=== PATIENT | male | born 1940 | race Caucasian/White ===

== ENCOUNTER 2023-04-10 16:21 | Inpatient (IN) | payer MEDICARE, SELFPAY ==
[2023-04-10] VITALS (13 sets, daily range): BP systolic 84–104; BP diastolic 56–73; PULSE 82–103; RESP 15–25; TEMP 36.1–36.4; O2SAT 94–99; BMI 25.2
--- NOTE | ~2023-04-10 | XR_ITS ---
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 RESULT: Lines, tubes, and devices: None. Lungs and pleura: Patchy airspace disease in the peripheral right mid and bilateral lower lungs. Sen escent changes. Cardiomediastinal silhouette: Stable. Other: No acute osseous or upper abdominal finding. IMPRESSION: Patchy bilateral airspace disease concerning for pneumonia. Reviewed, dictated and finalized at location K. PRESS OPERATOR
--- NOTE | ~2023-04-10 | XR_ITS ---
EXAMINATION: XR chest 1V portable INDICATION: Shortness of breath TECHNIQUE: Portable AP chest at 0939 hours COMPARISON: 04/10/2023 FINDINGS: There are patchy airspace opacities of the mid and lower lung zones with interval increase. No pleural effusion or pneumothorax. The cardiomediastinal silhouette is normal. IMPRESSION: 1. Patchy airspace opacities of the mid and lower lung zones with interval increase, likely pneumonia . Reviewed, dictated and finalized at location F. GER TRADE IMPRESSION: 1. Patchy airspace opacities of the mid and lower lung zones with interval incr ease, likely pneumonia.
[2023-04-10 17:39] LABS: Basophils Absolute Auto 0.1 K/mm3 (0.0-0.1); Basophils Percent Auto 0.5 % (0.2-1.2); Eosinophils Absolute Auto 0.2 K/mm3 (0-0.3); Eosinophils Percent Auto 1.9 % (0-4.4); Hematocrit 43.5 % (42.0-52.0); Hemoglobin 14.2 g/dL (14.0-18.0); Immature Granulocyte Absolute 0.18 K/mm3 (0.00-0.031); Immature Granulocyte Percent A 1.5 % (0-0.5); Lymphocytes Absolute Auto 0.45 K/mm3 (0.9-3.2); Lymphocytes Percent Auto 3.7 % (18.3-44.2); Mean Corpuscular HGB Conc 32.6 g/dl (32-36); Mean Corpuscular Hemoglobin 29.7 pg (26-34); Mean Platelet Volume 10.6 fl (7.4-10.4); Monocytes Absolute Auto 0.8 K/mm3 (0.1-0.6); Monocytes Percent Auto 6.7 % (2.6-8.5); Neutrophils Absolute Auto 10.6 K/mm3 (1.3-6.7); Neutrophils Percent Auto 85.7 % (45.5-73.1); Platelet Count Result 266 k/mm3 (150-375); Red Blood Count 4.78 M/mm3 (4.6-6.20); White Blood Count 12.3 K/mm3 (4.5-10.0)
[2023-04-10 17:49] LABS: Alanine Aminotransferase 22 U/L (6-50); Albumin Level 2.8 g/dL (3.5-5.1); Alkaline Phosphatase 97 U/L (38-126); Anion Gap 12 mmol/L (8-16); Aspartate Amino Transferase 31 U/L (17-59); Bilirubin,Total 0.9 mg/dL (0.2-1.3); Blood Urea Nitrogen 67 mg/dL (9-20); Carbon Dioxide 15 mmol/L (22-30); Chloride 106 mmol/L (98-107); Estimated Glomerular Filt Rate > 60; Glucose 150 mg/dL (65-110); Potassium 3.9 mmol/L (3.4-5.0); Sodium 133 mmol/L (137-145)
[2023-04-10] MEDS: SODIUM CHLORIDE 0.9% IV 500 ML 999 ML IV CONT ×2 (18:07→18:52)
--- NOTE | 2023-04-10 18:21 | ED.RECABL ---
HPI - Recheck/Abnormal Lab/Rx General Chief Complaint: Recheck/Abnormal Lab/Rx <Renetta Quijano PA-C - Last Filed: 04/10/23 23:54> Stated Complaint: elevated bun/creat/dehydration <Renetta Quijano PA-C - Last Filed: 04/10/23 23:54> Time Seen by Provider: 04/10/23 17:12 <Renetta Quijano PA-C - Last Filed: 04/10/23 23:54> Source: patient and family <Renetta Quijano PA-C - Last Filed: 04/10/23 23:54> Mode of arrival: ambulatory <EULOGIO Stuart Last Filed: 04/10/23 23:54> Limitations: no limitations <Renetta Quijano PA-C - Last Filed: 04/10/23 23:54> History of Present Illness HPI narrative: This is a 82 year old male that presents to the ER for dehydration. Reports he is currently being treated for metastatic melanoma. Reports he was on a chemo pill that they recently stopped as well as has had radiation. Reports his doctor is at [facility]. He has been struggling with diarrhea or over a month. Has also had poor appetite. Reports he had blood work on Saturday and was told to come to the ER for dehydration by his cancer specialist. Denies fevers, abdominal pain or vomiting. <Renetta Quijano PA-C - Last Filed: 04/10/23 23:54> Related Data Home Medications: Home Medications Medication Instructions Recorded Confirmed calcium carbonate 600 mg calcium 600 mg PO BID 04/05/22 04/10/23 (1,500 mg) tablet (Calcium) cholecalciferol (vitamin D3) 50 50 mcg PO DAILY 04/05/22 04/10/23 mcg (2,000 unit) capsule hydroxychloroquine 200 mg tablet 200 mg PO DAILY 04/05/22 04/10/23 lisinopril 20 mg tablet 20 mg PO DAILY 04/05/22 04/10/23 metoprolol succinate 25 mg 25 mg PO DAILY 04/05/22 04/10/23 tablet,extended release 24 hr naproxen sodium 220 mg tablet 220 mg PO BID PRN Pain 04/05/22 04/10/23 (Aleve) saxagliptin 5 mg tablet (Onglyza) 5 mg PO DAILY 04/05/22 04/10/23 atorvastatin 40 mg tablet 40 mg PO DAILY 04/17/22 04/10/23 moaqvweredph-[id number] tablet 1 tablet PO DAILY 04/10/23 04/10/23 <Renetta Quijano PA-C - Last Filed: 04/10/23 23:54> Allergies/Adverse Reactions: Allergies Allergy/AdvReac Type Severity Reaction Status Date / Time Nivolumab Analogues Allergy Intermediate Anaphylaxis Verified 04/10/23 17:02 [id number] Allergy Intermediate Anaphylaxis Verified 04/10/23 17:02 <Renetta Quijano PA-C - Last Filed: 04/10/23 23:54> Review of Systems Review of Systems: CONSTITUTIONAL: Denies fever GASTROINTESTINAL: Reports diarrhea. Denies abdominal pain, nausea, vomiting GENITOURINARY: Denies dysuria <Renetta Quijano PA-C - Last Filed: 04/10/23 23:54> All systems reviewed & are unremarkable except as noted in HPI and below <Renetta Quijano PA-C - Last Filed: 04/10/23 23:54> [facility] Past Medical History Medical History: Medical History Body mass index [BMI] 30.0-30.9, adult Essential (primary) hypertension Hypercholesterolemia Hyperlipidemia, unspecified Melanoma of scalp Removed Metabolic syndrome (~04/17/22) Neoplasm of neck Removed Pain in unspecified joint Personal history of malignant melanoma of skin Polio age 8, no known residual deficits Post-void dribbling Pure hypercholesterolemia, unspecified Secondary and unspecified malignant neoplasm of lymph nodes of head, 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
[2023-04-10 19:18] LABS: Influenza A QL RT-PCR Negative (Negative); Influenza B QL RT-PCR Negative (Negative); RSV RNA, RT-PCR Negative (Negative); SARS-CoV-2 RNA PCR Positive (Negative)
[2023-04-10 19:32] LABS: Appearance Urine Cloudy (Clear); Bacteria Urine None Seen /hpf; Bilirubin Urine Negative (Negative); Blood Urine 3+ (Negative); Color Urine Yellow (Yellow); Glucose Urine UA Negative (Negative); Hyaline Casts Urine Present /lpf; Ketones Urine Negative (Negative); Leukocyte Esterase Ur Negative LEU/UL (Negative); Need Manual Microscopic Reviewed; Nitrate Urine Negative (Negative); Protein Urine 1+ mg/dL (Negative); RBC Urine 51-100 /hpf (0-2); Specific Grav Ur 1.021 (1.001-1.035); Squamous Epithelial Cell Urine Occasional /hpf (Few); Urobilinogen Urine 0.2 mg/dL (<2.0); WBC Urine 0-5 /hpf
[2023-04-10 19:38] LABS: Add Urine Microscopic? YES
--- NOTE | 2023-04-10 20:35 | PM.IMHP ---
H&P: HPI History of Present Illness Date/Time: 04/10/23 20:35 Chief Complaint: generalized weakness. Narrative: This is an 82-year-old male with past medical history significant for metastatic melanoma, hypertension, type diabetes mellitus. Patient or currently undergoing radiation treatment. Presents to the emergency room due to nausea, vomiting, generalized weakness, poor per orally intake, abdominal pain. Preliminary workup was significant for chest x-ray with infiltrates. Patient had been tested positive for COVID. Started on ceftriaxone and Zithromax in the emergency room. Patient has been admitted for further evaluation management and treatment. EXAMINATION:? XR chest 2V Exam Date/Time:? 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 Comparison:? 06/04/2015. RESULT: Lines, tubes, and devices:? None. Lungs and pleura:? Patchy airspace disease in the peripheral right mid and bilateral lower lungs. Senescent changes. Cardiomediastinal silhouette:? Stable. Other:? No acute osseous or upper abdominal finding. ? IMPRESSION: Patchy bilateral airspace disease concerning for pneumonia. Review of Systems Review of Systems: Generalized weakness, nausea, vomiting abdominal pain, poor per orally intake. Constitutional: Constitutional: Reports fatigue, Reports lethargy, Reports malaise, Denies night sweats, Reports poor appetite and Reports weakness Eyes: Eyes: Denies change in vision ENT: Denies dysphagia and Denies odynophagia Cardiovascular: Cardiovascular: Denies chest pain, Denies radiating jaw, neck or arm pain and Denies palpitations Respiratory: Respiratory: Denies cough and Denies dyspnea Gastrointestinal: Gastrointestinal: Reports abdominal pain, Reports nausea and Reports vomiting Genitourinary: Genitourinary: Denies dysuria Musculoskeletal: Musculoskeletal: Denies arthralgias and Denies joint swelling Integumentary/Breasts: Skin/Breast: Denies rash Neurologic: Denies focal weakness and Denies Sensory deficit (Neuro) Psychiatric: Psychiatric: Reports no additional psychiatric complaints and Reports as per HPI Endocrine: Endocrine: Denies cold intolerance, Denies fatigue, Denies flushing, Denies heat intolerance, Denies polyphagia, Denies polydipsia and Denies palpitations Hematologic/Lymphatic: Hematologic/Lymphatic: Reports no additional hematologic/lymphatic complaints and Reports as per HPI Allergic/Immunologic: Allergic/Immunologic: Reports no additional allergic/immunologic complaints and Reports as per HPI PMFSH Past Medical History Medical History Body mass index [BMI] 30.0-30.9, adult Essential (primary) hypertension Hypercholesterolemia Hyperlipidemia, unspecified Melanoma of scalp Removed Metabolic syndrome (~04/17/22) Neoplasm of neck Removed Pain in unspecified joint Personal history of malignant melanoma of skin Polio age 8, no known residual deficits Post-void dribbling Pure hypercholesterolemia, unspecified Secondary and unspecified malignant neoplasm of lymph nodes of head, 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 Type 2 diabetes mellitus without complications Surgical History Surgical History History of colonoscopy History of liver biopsy History of skin graft Family History Family History Grandparent Diabetes mellitus Heart disease Mother Heart disease Diabetes mellitus Grandparent Diabetes mellitus Grandparent Cancer Carcinoma of colon Father Tuberculosis Social History Social History (Updated 10/16/22 @ 11:19 by Danielle Cline MA) Smoking status: Former smoker Alcohol intake: never Substance use: never Do You Feel Safe in your Home?: Yes Lack of Transportation: No Lack of Food: Never True Current Housing: I
[2023-04-10 21:57] LABS: Lactic Acid Reflex 1.8 mmol/L (0.7-2.0)
[2023-04-10] MEDS: AZITHROMYCIN 500 MG/NS 250 ML 500 MG/250 ML BAG 250 MG IVPB (22:50)
[2023-04-10] MEDS: SODIUM CHLORIDE 0.9% IV 1,000 ML 999 ML IV CONT (22:50)
--- NOTE | 2023-04-10 23:46 | ADMGEN ---
This patient, Faheem Lal, was admitted to [facility] Surg Room 329-01. Patient/family oriented to hospital policies and general routines including ID bracelet, bed and alarms, visiting hours, pain management, procedures, bathroom and other care routines, personal items, smoking policy, room service/diet, and visiting hours. Information on how to activate the Rapid Response Team has been discussed. Patient/Family are encouraged to report perceived risks to care and to ask questions if they do not understand what they are told or what they should do.
[2023-04-11 00:42] LABS: Glucose Point of Care 141 mg/dl (65-105)
[2023-04-11 04:45] VITALS: BP 102/75; PULSE 87; RESP 20; TEMP 36.2; O2SAT 99
[2023-04-11] MEDS: SODIUM CHLORIDE 0.9% IV 1,000 ML 75 ML IV CONT ×2 (04:50→18:17)
[2023-04-11 08:00] VITALS: BP 90/68; PULSE 83; RESP 20; TEMP 36.4; O2SAT 95
[2023-04-11 08:20] LABS: Glucose Point of Care 100 mg/dl (65-105)
[2023-04-11] MEDS: CHOLECALCIFEROL 1,000 UNITS TABLET 2000 UNITS PO (09:56)
[2023-04-11] MEDS: OPTI-GEN TAB 1 TABLET PO (09:56)
[2023-04-11] MEDS: HYDROXYCHLOROQUINE SULFATE 200 MG TABLET PO (09:57)
[2023-04-11] MEDS: CALCIUM CARBONATE (OSCAL) 500 MG TABLET PO ×2 (09:57→18:23)
[2023-04-11 11:21] VITALS: BMI 25.2
[2023-04-11 11:44] LABS: Glucose Point of Care 120 mg/dl (65-105)
--- NOTE | 2023-04-11 11:46 | PM.IMPN ---
Progress Note: A&P Assessment and Plan (1) Pneumonia: Qualifiers: Laterality: bilateral Lung location: lower lobe of lung Pneumonia type: due to unspecified organism Qualified Code(s): J18.9 - Pneumonia, unspecified organism Code(s): J18.9 - Pneumonia, unspecified organism Status: Acute Assessment and Plan: Started on Rocephin and Zithromax 04/10 Await cultures Supportive care Continue to monitor (2) Dehydration: Code(s): E86.0 - Dehydration Status: Acute Assessment and Plan: Gentle hydration Daily intake and output (3) Metastatic melanoma: Code(s): C43.9 - Malignant melanoma of skin, unspecified Status: Acute Assessment and Plan: Follow-up in outpatient setting Undergoing radiation Plan DVT prophylaxis with SCDs GI prophylaxis not indicated Code status full code Subjective Date/time seen: 04/11/23 11:46 Interval history: 82-year-old male with history of metastatic melanoma receiving radiation treatment outpatient, diabetes, presenting with nausea, vomiting and generalized weakness and currently being treated for COVID and possible CAP. No overnight events noted. No chest pain or shortness of breath. No nausea, vomiting or diarrhea. No fevers or chills. Review of Systems Review of Systems: 12 point review of systems was assessed and was negative except as noted in the HPI Exam Narrative: General: No acute distress, alert and oriented per baseline HEENT: Atraumatic, normocephalic, mucous membranes moist CV: Regular rate and rhythm, S1, S2 Lungs: Clear to auscultation bilaterally, no rales or crackles noted, no wheezes, good air entry Abdomen: Soft, nontender, nondistended Extremities: Normal to inspection Skin: No rashes noted, no lesions or wounds seen Psych: Euthymic, normal affect Objective Data Vital Signs Vital Signs: Vital Signs - 24 hr 04/10/23 16:35 04/10/23 16:38 04/10/23 16:46 Temperature 97.6 F Pulse Rate 103 H 100 95 Respiratory Rate 18 21 H 22 H Blood Pressure 84/56 L 102/67 Pulse Oximetry 94 Oxygen Delivery Room Air 04/10/23 17:02 04/10/23 17:27 04/10/23 17:30 Temperature Pulse Rate 93 92 92 Respiratory Rate 16 19 25 H Blood Pressure 88/63 L Pulse Oximetry 95 97 Oxygen Delivery 04/10/23 17:31 04/10/23 18:15 04/10/23 18:33 Temperature Pulse Rate 91 91 87 Respiratory Rate 22 H 21 H 15 Blood Pressure 92/61 L Pulse Oximetry 97 97 Oxygen Delivery 04/10/23 19:00 04/10/23 19:01 04/10/23 22:40 Temperature Pulse Rate 91 90 85 Respiratory Rate 15 23 H 16 Blood Pressure 103/73 99/70 L Pulse Oximetry 97 97 96 Oxygen Delivery 04/10/23 23:25 04/10/23 23:42 04/11/23 04:45 Temperature 97 F L 97.2 F L Pulse Rate 82 87 Respiratory Rate 16 20 Blood Pressure 104/72 102/75 Pulse Oximetry 99 99 Oxygen Delivery Room Air 04/11/23 08:00 Temperature 97.6 F Pulse Rate 83 Respiratory Rate 20 Blood Pressure 90/68 L Pulse Oximetry 95 Oxygen Delivery Intake/Output Intake/Output: Intake & Output 04/08/23 04/09/23 04/10/23 04/11/23 23:59 23:59 23:59 23:59 Intake Total 2300 220 Output Total 300 Balance 2300 -80 Meds/Results Medications: Active Medications Generic Name Dose Route Start Last Admin Trade Name Freq PRN Reason Stop Dose Admin Calcium Carbonate 500 mg 04/11/23 09:00 04/11/23 09:57 Calcium Carbonate (Oscal) 500 Mg Tablet PO 500 mg BID JUAN J Administration Hydroxychloroquine Sulfate 200 mg 04/11/23 08:00 04/11/23 09:57 Hydroxychloroquine Sulfate 200 Mg Tablet PO 200 mg DAILY@0800 JUAN J Administration Ceftriaxone Sodium 1 gm in 50 mls @ 100 mls/hr 04/11/23 22:00 Rocephin 1 Gm/Ns 50 Ml IVPB Q24H JUAN J Azithromycin 500 mg in 250 mls @ 250 mls/hr 04/11/23 23:00 Zithromax IVPB Q24H JUAN J Sodium Chloride 1,000 mls @ 75 mls/hr 04/11/23 04:15
[2023-04-11 12:00] VITALS: BP 101/71; PULSE 71; RESP 20; TEMP 36.4; O2SAT 90
[2023-04-11 12:43] LABS: Basophils Absolute Auto 0.1 K/mm3 (0.0-0.1); Basophils Percent Auto 0.6 % (0.2-1.2); Eosinophils Absolute Auto 0.4 K/mm3 (0-0.3); Eosinophils Percent Auto 3.9 % (0-4.4); Hematocrit 41.2 % (42.0-52.0); Hemoglobin 13.6 g/dL (14.0-18.0); Immature Granulocyte Absolute 0.12 K/mm3 (0.00-0.031); Immature Granulocyte Percent A 1.1 % (0-0.5); Lymphocytes Absolute Auto 0.46 K/mm3 (0.9-3.2); Lymphocytes Percent Auto 4.3 % (18.3-44.2); Mean Corpuscular Hemoglobin 30.2 pg (26-34); Mean Corpuscular Volume 91.6 fl (80-100); Mean Platelet Volume 10.4 fl (7.4-10.4); Monocytes Absolute Auto 0.9 K/mm3 (0.1-0.6); Monocytes Percent Auto 8.1 % (2.6-8.5); Neutrophils Absolute Auto 8.7 K/mm3 (1.3-6.7); Platelet Count Result 222 k/mm3 (150-375); Red Cell Distribution Width 15.1 % (11.5-14.5); White Blood Count 10.6 K/mm3 (4.5-10.0)
[2023-04-11 13:07] LABS: Alanine Aminotransferase 19 U/L (6-50); Albumin Level 2.6 g/dL (3.5-5.1); Alkaline Phosphatase 92 U/L (38-126); Anion Gap 11 mmol/L (8-16); Aspartate Amino Transferase 35 U/L (17-59); Bilirubin,Total 0.7 mg/dL (0.2-1.3); Blood Urea Nitrogen 49 mg/dL (9-20); Calcium 7.4 mg/dL (8.4-10.2); Carbon Dioxide 15 mmol/L (22-30); Chloride 110 mmol/L (98-107); Estimated CRCL calculation 52 ml/min; Estimated Glomerular Filt Rate > 60; Glucose 127 mg/dL (65-110); Potassium 4.4 mmol/L (3.4-5.0); Sodium 136 mmol/L (137-145)
[2023-04-11 14:07] LABS: Toxigenic C. Diff NEGATIVE (NEGATIVE)
[2023-04-11 15:59] LABS: Glucose Point of Care 143 mg/dl (65-105)
[2023-04-11 16:00] VITALS: BP 109/69; PULSE 89; RESP 20; TEMP 36.6; O2SAT 97
[2023-04-11 19:48] LABS: Glucose Point of Care 174 mg/dl (65-105)
[2023-04-11 20:22] VITALS: BP 119/76; PULSE 88; RESP 18; TEMP 36.4; O2SAT 96
[2023-04-11] MEDS: AZITHROMYCIN 500 MG/NS 250 ML 500 MG/250 ML BAG 250 MG IVPB (22:28)
[2023-04-12] VITALS (7 sets, daily range): BP systolic 101–120; BP diastolic 64–75; PULSE 76–94; RESP 16–20; TEMP 36.1–36.7; O2SAT 95–100
[2023-04-12 06:06] LABS: Basophils Absolute Auto 0.1 K/mm3 (0.0-0.1); Basophils Percent Auto 0.6 % (0.2-1.2); Eosinophils Absolute Auto 0.7 K/mm3 (0-0.3); Eosinophils Percent Auto 8.2 % (0-4.4); Hematocrit 34.5 % (42.0-52.0); Hemoglobin 11.2 g/dL (14.0-18.0); Immature Granulocyte Absolute 0.08 K/mm3 (0.00-0.031); Immature Granulocyte Percent A 0.9 % (0-0.5); Lymphocytes Absolute Auto 0.37 K/mm3 (0.9-3.2); Lymphocytes Percent Auto 4.4 % (18.3-44.2); Mean Corpuscular HGB Conc 32.5 g/dl (32-36); Mean Corpuscular Volume 92.5 fl (80-100); Mean Platelet Volume 10.2 fl (7.4-10.4); Monocytes Absolute Auto 0.7 K/mm3 (0.1-0.6); Monocytes Percent Auto 8.7 % (2.6-8.5); Neutrophils Absolute Auto 6.6 K/mm3 (1.3-6.7); Neutrophils Percent Auto 77.2 % (45.5-73.1); Platelet Count Result 173 k/mm3 (150-375); Red Blood Count 3.73 M/mm3 (4.6-6.20); Red Cell Distribution Width 15.2 % (11.5-14.5); White Blood Count 8.5 K/mm3 (4.5-10.0)
[2023-04-12 06:18] LABS: Alanine Aminotransferase 18 U/L (6-50); Alkaline Phosphatase 71 U/L (38-126); Anion Gap 6 mmol/L (8-16); Aspartate Amino Transferase 28 U/L (17-59); Bilirubin,Total 0.4 mg/dL (0.2-1.3); Blood Urea Nitrogen 31 mg/dL (9-20); Calcium 6.8 mg/dL (8.4-10.2); Carbon Dioxide 19 mmol/L (22-30); Chloride 110 mmol/L (98-107); Estimated CRCL calculation 52 ml/min; Estimated Glomerular Filt Rate > 60; Glucose 106 mg/dL (65-110); Potassium 3.5 mmol/L (3.4-5.0); Sodium 135 mmol/L (137-145)
[2023-04-12 07:45] LABS: Glucose Point of Care 118 mg/dl (65-105)
[2023-04-12] MEDS: METOPROLOL SUCCINATE EXT REL 25 MG TABCR PO (08:20)
[2023-04-12] MEDS: HYDROXYCHLOROQUINE SULFATE 200 MG TABLET PO (08:21)
[2023-04-12] MEDS: CHOLECALCIFEROL 1,000 UNITS TABLET 2000 UNITS PO (08:21)
[2023-04-12] MEDS: CALCIUM CARBONATE (OSCAL) 500 MG TABLET PO ×2 (08:21→16:12)
[2023-04-12] MEDS: OPTI-GEN TAB 1 TABLET PO (08:21)
[2023-04-12] MEDS: SODIUM CHLORIDE 0.9% IV 1,000 ML 75 ML IV CONT ×2 (08:23→21:30)
[2023-04-12 11:37] LABS: Glucose Point of Care 131 mg/dl (65-105)
--- NOTE | 2023-04-12 14:56 | PM.IMPN ---
Progress Note: A&P Assessment and Plan (1) Pneumonia: Qualifiers: Laterality: bilateral Lung location: lower lobe of lung Pneumonia type: due to unspecified organism Qualified Code(s): J18.9 - Pneumonia, unspecified organism Code(s): J18.9 - Pneumonia, unspecified organism Status: Acute Assessment and Plan: Started on Rocephin and Zithromax 04/10 Await cultures Supportive care Continue to monitor 1/2 blood cx +GNB, repeat bld cx pending, leuk improving, sx improving (2) Dehydration: Code(s): E86.0 - Dehydration Status: Acute Assessment and Plan: Gentle hydration Daily intake and output (3) Metastatic melanoma: Code(s): C43.9 - Malignant melanoma of skin, unspecified Status: Acute Assessment and Plan: Follow-up in outpatient setting Undergoing radiation (4) Diarrhea: Code(s): R19.7 - Diarrhea, unspecified Status: Acute Assessment and Plan: ddx includes cdif, infectious colitis, radiation colitis, stool studies pending, hold off on further care at this time until dx made Plan DVT prophylaxis with SCDs GI prophylaxis not indicated Code status DNR Subjective Date/time seen: 04/12/23 14:56 Interval history: 82-year-old male with history of metastatic melanoma receiving radiation treatment outpatient, diabetes, presenting with nausea, vomiting and generalized weakness and currently being treated for COVID and possible CAP. No overnight events noted. No chest pain or shortness of breath. No nausea, vomiting. No fevers or chills. States he has started to have diarrhea again. Apparently he has had diarrhea since completing radiation late Mar 2023. He has had over 15 liquid stools today. Review of Systems Review of Systems: 12 point review of systems was assessed and was negative except as noted in the HPI Exam Narrative: General: No acute distress, alert and oriented per baseline HEENT: Atraumatic, normocephalic, mucous membranes moist CV: Regular rate and rhythm, S1, S2 Lungs: Clear to auscultation bilaterally, no rales or crackles noted, no wheezes, good air entry Abdomen: Soft, nontender, nondistended Extremities: Normal to inspection Skin: No rashes noted, no lesions or wounds seen Psych: Euthymic, normal affect Objective Data Vital Signs Vital Signs: Vital Signs - 24 hr 04/11/23 16:00 04/11/23 20:10 04/11/23 20:22 Temperature 97.8 F 97.5 F L Pulse Rate 89 88 Respiratory Rate 20 18 Blood Pressure 109/69 119/76 Pulse Oximetry 97 96 Oxygen Delivery Room Air 04/12/23 00:50 04/12/23 04:30 04/12/23 08:20 Temperature 98.1 F 98.1 F Pulse Rate 88 76 76 Respiratory Rate 16 20 Blood Pressure 120/75 115/64 Pulse Oximetry 97 96 Oxygen Delivery 04/12/23 08:00 04/12/23 08:15 04/12/23 12:00 Temperature 97.3 F L 98.1 F Pulse Rate 94 83 Respiratory Rate 16 16 Blood Pressure 112/71 119/71 Pulse Oximetry 97 95 Oxygen Delivery Room Air Intake/Output Intake/Output: Intake & Output 04/09/23 04/10/23 04/11/23 04/12/23 23:59 23:59 23:59 23:59 Intake Total 2300 2650 2680 Output Total 300 5 Balance 2300 2350 2675 Meds/Results Medications: Active Medications Generic Name Dose Route Start Last Admin Trade Name Freq PRN Reason Stop Dose Admin Calcium Carbonate 500 mg 04/11/23 09:00 04/12/23 08:21 Calcium Carbonate (Oscal) 500 Mg Tablet PO 500 mg BID JUAN J Administration Hydroxychloroquine Sulfate 200 mg 04/11/23 08:00 04/12/23 08:21 Hydroxychloroquine Sulfate 200 Mg Tablet PO 200 mg DAILY@0800 JUAN J Administration Ceftriaxone Sodium 1 gm in 50 mls @ 100 mls/hr 04/11/23 22:00 04/11/23 22:19 Rocephin 1 Gm/Ns 50 Ml IVPB Infused Q24H JUAN J Infusion Azithromycin 500 mg in 250 mls @ 250 mls/hr 04/11/23 23:00 04/11/23 23:28 Zithromax IVPB Infused Q24H JUAN J Infusion Sodium Chloride 1,000 mls @
[2023-04-12 15:52] LABS: Glucose Point of Care 123 mg/dl (65-105)
[2023-04-12] MEDS: AZITHROMYCIN 500 MG/NS 250 ML 500 MG/250 ML BAG 250 MG IVPB (22:20)
[2023-04-13 00:24] VITALS: BP 108/62; PULSE 80; RESP 20; TEMP 36.6; O2SAT 98
[2023-04-13 04:55] VITALS: BP 107/68; PULSE 76; RESP 18; TEMP 36.4; O2SAT 97
[2023-04-13 05:48] LABS: Glucose Point of Care 172 mg/dl (65-105)
[2023-04-13 06:16] LABS: Basophils Absolute Auto 0.1 K/mm3 (0.0-0.1); Basophils Percent Auto 0.7 % (0.2-1.2); Eosinophils Absolute Auto 0.8 K/mm3 (0-0.3); Eosinophils Percent Auto 8.8 % (0-4.4); Hematocrit 32.4 % (42.0-52.0); Hemoglobin 10.9 g/dL (14.0-18.0); Immature Granulocyte Absolute 0.07 K/mm3 (0.00-0.031); Immature Granulocyte Percent A 0.8 % (0-0.5); Lymphocytes Absolute Auto 0.48 K/mm3 (0.9-3.2); Lymphocytes Percent Auto 5.5 % (18.3-44.2); Mean Corpuscular HGB Conc 33.6 g/dl (32-36); Mean Corpuscular Hemoglobin 30.4 pg (26-34); Mean Corpuscular Volume 90.5 fl (80-100); Mean Platelet Volume 10.4 fl (7.4-10.4); Monocytes Absolute Auto 0.6 K/mm3 (0.1-0.6); Monocytes Percent Auto 7.3 % (2.6-8.5); Neutrophils Absolute Auto 6.7 K/mm3 (1.3-6.7); Neutrophils Percent Auto 76.9 % (45.5-73.1); Platelet Count Result 148 k/mm3 (150-375); Red Blood Count 3.58 M/mm3 (4.6-6.20); Red Cell Distribution Width 14.9 % (11.5-14.5); White Blood Count 8.7 K/mm3 (4.5-10.0)
[2023-04-13 06:34] LABS: Alanine Aminotransferase 22 U/L (6-50); Albumin Level 1.8 g/dL (3.5-5.1); Alkaline Phosphatase 70 U/L (38-126); Anion Gap 5 mmol/L (8-16); Aspartate Amino Transferase 35 U/L (17-59); Bilirubin,Total 0.5 mg/dL (0.2-1.3); Blood Urea Nitrogen 15 mg/dL (9-20); Calcium 6.2 mg/dL (8.4-10.2); Carbon Dioxide 19 mmol/L (22-30); Chloride 109 mmol/L (98-107); Estimated CRCL calculation 65 ml/min; Estimated Glomerular Filt Rate > 60; Glucose 95 mg/dL (65-110); Sodium 133 mmol/L (137-145)
[2023-04-13 08:30] LABS: Glucose Point of Care 109 mg/dl (65-105)
[2023-04-13] MEDS: SODIUM CHLORIDE 0.9% IV 1,000 ML 75 ML IV CONT ×2 (09:42→23:13)
[2023-04-13 09:43] VITALS: PULSE 90
[2023-04-13] MEDS: HYDROXYCHLOROQUINE SULFATE 200 MG TABLET PO (09:43)
[2023-04-13] MEDS: CHOLECALCIFEROL 1,000 UNITS TABLET 2000 UNITS PO (09:43)
[2023-04-13] MEDS: CALCIUM CARBONATE (OSCAL) 500 MG TABLET PO ×2 (09:43→16:45)
[2023-04-13] MEDS: METOPROLOL SUCCINATE EXT REL 25 MG TABCR PO (09:43)
[2023-04-13] MEDS: OPTI-GEN TAB 1 TABLET PO (09:43)
[2023-04-13 11:35] LABS: Glucose Point of Care 169 mg/dl (65-105)
--- NOTE | 2023-04-13 13:18 | PCPTNOTE ---
04/13/23 PT - eval completed. Patient d/c from PT care. Recommend HHPT or outpatient PT services.
[2023-04-13 14:00] VITALS: BP 99/64; PULSE 86; RESP 16; TEMP 36.7; O2SAT 98
--- NOTE | 2023-04-13 15:02 | PM.IMPN ---
Progress Note: A&P Assessment and Plan (1) Pneumonia: Qualifiers: Laterality: bilateral Lung location: lower lobe of lung Pneumonia type: due to unspecified organism Qualified Code(s): J18.9 - Pneumonia, unspecified organism Code(s): J18.9 - Pneumonia, unspecified organism Status: Acute Assessment and Plan: Started on Rocephin and Zithromax 04/10 Await cultures Supportive care Continue to monitor / blood cx +GNB, repeat bld cx pending, leuk improving, sx improving (2) Dehydration: Code(s): E86.0 - Dehydration Status: Acute Assessment and Plan: Gentle hydration Daily intake and output (3) Metastatic melanoma: Code(s): C43.9 - Malignant melanoma of skin, unspecified Status: Acute Assessment and Plan: Follow-up in outpatient setting Undergoing radiation (4) Diarrhea: Code(s): R19.7 - Diarrhea, unspecified Status: Acute Assessment and Plan: ddx includes cdif, infectious colitis, radiation colitis, stool studies pending, hold off on further care at this time until dx made improving Plan DVT prophylaxis with SCDs GI prophylaxis not indicated Code status DNR Subjective Date/time seen: 04/13/23 15:02 Interval history: 82-year-old male with history of metastatic melanoma receiving radiation treatment outpatient, diabetes, presenting with nausea, vomiting and generalized weakness and currently being treated for COVID and possible CAP. No overnight events noted. No chest pain or shortness of breath. No nausea, vomiting. No fevers or chills. Diarrhea much improved. Review of Systems Review of Systems: 12 point review of systems was assessed and was negative except as noted in the HPI Exam Narrative: General: No acute distress, alert and oriented per baseline HEENT: Atraumatic, normocephalic, mucous membranes moist CV: Regular rate and rhythm, S1, S2 Lungs: Clear to auscultation bilaterally, no rales or crackles noted, no wheezes, good air entry Abdomen: Soft, nontender, nondistended Extremities: Normal to inspection Skin: No rashes noted, no lesions or wounds seen Psych: Euthymic, normal affect Objective Data Vital Signs Vital Signs: Vital Signs - 24 hr 04/12/23 16:00 04/12/23 20:45 04/13/23 00:24 Temperature 97.1 F L 97.0 F L 97.9 F Pulse Rate 84 81 80 Respiratory Rate 18 20 20 Blood Pressure 113/68 101/64 108/62 Pulse Oximetry 100 98 98 Oxygen Delivery 04/13/23 04:55 04/13/23 09:43 04/13/23 08:00 Temperature 97.6 F Pulse Rate 76 90 Respiratory Rate 18 Blood Pressure 107/68 Pulse Oximetry 97 Oxygen Delivery Room Air 04/13/23 13:12 Temperature Pulse Rate Respiratory Rate Blood Pressure Pulse Oximetry Oxygen Delivery Room Air Intake/Output Intake/Output: Intake & Output 04/10/23 04/11/23 04/12/23 04/13/23 23:59 23:59 23:59 23:59 Intake Total 2300 2650 4555 2150 Output Total 300 7 Balance 2300 2350 4548 2150 Meds/Results Medications: Active Medications Generic Name Dose Route Start Last Admin Trade Name Freq PRN Reason Stop Dose Admin Calcium Carbonate 500 mg 04/11/23 09:00 04/13/23 09:43 Calcium Carbonate (Oscal) 500 Mg Tablet PO 500 mg BID JUAN J Administration Hydroxychloroquine Sulfate 200 mg 04/11/23 08:00 04/13/23 09:43 Hydroxychloroquine Sulfate 200 Mg Tablet PO 200 mg DAILY@0800 JUAN J Administration Ceftriaxone Sodium 1 gm in 50 mls @ 100 mls/hr 04/11/23 22:00 04/12/23 22:00 Rocephin 1 Gm/Ns 50 Ml IVPB Infused Q24H JUAN J Infusion Azithromycin 500 mg in 250 mls @ 250 mls/hr 04/11/23 23:00 04/12/23 23:20 Zithromax IVPB Infused Q24H JUAN J Infusion Sodium Chloride 1,000 mls @ 75 mls/hr 04/11/23 04:15 04/13/23 09:42 Normal Saline Iv IV CONT 75 mls/hr .[id number] JUAN J Administration Metoprolol Succinate 25 mg 04/11/23 09:00 04/13/23 09:43 Metoprolol Succin
[2023-04-13 16:02] LABS: Glucose Point of Care 164 mg/dl (65-105)
[2023-04-13] MEDS: POTASSIUM CHLORIDE 20 MEQ ER TABLET 40 MEQ PO (16:45)
[2023-04-13 20:00] VITALS: BP 104/65; PULSE 82; PULSE 87; RESP 16; TEMP 37.2; O2SAT 96; O2SAT 97
[2023-04-13 22:31] LABS: Glucose Point of Care 116 mg/dl (65-105)
[2023-04-13] MEDS: AZITHROMYCIN 500 MG/NS 250 ML 500 MG/250 ML BAG 250 MG IVPB (23:13)
[2023-04-14] VITALS (7 sets, daily range): BP systolic 99–107; BP diastolic 60–68; PULSE 74–89; RESP 10–20; TEMP 36.3–37.1; O2SAT 95–99
[2023-04-14 06:21] LABS: Basophils Percent Auto 0.5 % (0.2-1.2); Eosinophils Absolute Auto 0.7 K/mm3 (0-0.3); Eosinophils Percent Auto 8.3 % (0-4.4); Hematocrit 31.6 % (42.0-52.0); Hemoglobin 10.6 g/dL (14.0-18.0); Immature Granulocyte Absolute 0.06 K/mm3 (0.00-0.031); Immature Granulocyte Percent A 0.7 % (0-0.5); Lymphocytes Absolute Auto 0.52 K/mm3 (0.9-3.2); Lymphocytes Percent Auto 6.1 % (18.3-44.2); Mean Corpuscular HGB Conc 33.5 g/dl (32-36); Mean Corpuscular Hemoglobin 30.3 pg (26-34); Mean Corpuscular Volume 90.3 fl (80-100); Mean Platelet Volume 10.6 fl (7.4-10.4); Monocytes Absolute Auto 0.6 K/mm3 (0.1-0.6); Monocytes Percent Auto 6.8 % (2.6-8.5); Neutrophils Absolute Auto 6.6 K/mm3 (1.3-6.7); Neutrophils Percent Auto 77.6 % (45.5-73.1); Platelet Count Result 135 k/mm3 (150-375); White Blood Count 8.5 K/mm3 (4.5-10.0)
[2023-04-14 06:44] LABS: Alanine Aminotransferase 32 U/L (6-50); Albumin Level 1.7 g/dL (3.5-5.1); Alkaline Phosphatase 84 U/L (38-126); Anion Gap 4 mmol/L (8-16); Aspartate Amino Transferase 43 U/L (17-59); Bilirubin,Total 0.4 mg/dL (0.2-1.3); Blood Urea Nitrogen 11 mg/dL (9-20); Calcium 5.7 mg/dL (8.4-10.2); Carbon Dioxide 19 mmol/L (22-30); Chloride 111 mmol/L (98-107); Estimated CRCL calculation 75 ml/min; Estimated Glomerular Filt Rate > 60; Glucose 93 mg/dL (65-110); Potassium 3.3 mmol/L (3.4-5.0); Sodium 134 mmol/L (137-145)
[2023-04-14 07:49] LABS: Glucose Point of Care 105 mg/dl (65-105)
[2023-04-14] MEDS: CHOLECALCIFEROL 1,000 UNITS TABLET 2000 UNITS PO (08:38)
[2023-04-14] MEDS: CALCIUM CARBONATE (OSCAL) 500 MG TABLET PO ×2 (08:38→18:03)
[2023-04-14] MEDS: HYDROXYCHLOROQUINE SULFATE 200 MG TABLET PO (08:38)
[2023-04-14] MEDS: OPTI-GEN TAB 1 TABLET PO (08:38)
[2023-04-14] MEDS: METOPROLOL SUCCINATE EXT REL 25 MG TABCR PO (08:38)
[2023-04-14] MEDS: POTASSIUM CHLORIDE 20 MEQ ER TABLET 40 MEQ PO (09:51)
[2023-04-14] MEDS: LOPERAMIDE HCL 2 MG CAPSULE PO ×3 (09:51→23:41)
[2023-04-14 11:52] LABS: Glucose Point of Care 141 mg/dl (65-105)
[2023-04-14] MEDS: SODIUM CHLORIDE 0.9% IV 1,000 ML 75 ML IV CONT (13:23)
--- NOTE | 2023-04-14 14:29 | WPDGICN ---
Assessment and Plan Assessment and plan (1) Diarrhea: Code(s): R19.7 - Diarrhea, unspecified Status: Acute Assessment and Plan: probably could be from covid infection, radiation, previous chemotherapy, metastatic disease, etc C diff negative had colonoscopy about 1.5 year ago supportive care, imodium prn if no improvement consider sigmoidoscopy but seems that he is already feeling better (symptom started after COVID infection per patient) (2) Metastatic melanoma: Code(s): C43.9 - Malignant melanoma of skin, unspecified Status: Acute Assessment and Plan: oncologist at [facility], metastatic disease he developed adverse events after immunotherapy in 2020 (3) Pneumonia: Qualifiers: Laterality: bilateral Lung location: lower lobe of lung Pneumonia type: due to unspecified organism Qualified Code(s): J18.9 - Pneumonia, unspecified organism Code(s): J18.9 - Pneumonia, unspecified organism Status: Acute Assessment and Plan: on treatment (4) COVID: Code(s): U07.1 - COVID-19 Status: Acute GI Consult Note Consult date/time: 04/14/23 14:29 Reason for consult: diarrhea HPI: Faheem Lal is a 82 year old male with 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 He developed COVID 03/16/23 that was treated and since with diarrhea with accident. He was started about 10 days on XRT, still with diarrhea and finally came to hospital with weakness and dehydration. Admitted few days, also had pneumonia after abnormal CXR and started on abx, C diff negative. Started on imodiun and thinks that better. Had colonoscopy about 1.5 year ago. Review of Systems Constitutional: Constitutional: Reports weakness Eyes: Eyes: Denies blurry vision ENT: Reports Normal hearing present Cardiovascular: Cardiovascular: Denies chest pain Respiratory: Respiratory: Reports cough Gastrointestinal: Gastrointestinal: Reports diarrhea Genitourinary: Genitourinary: Denies dysuria Musculoskeletal: Musculoskeletal: Denies neck pain Integumentary/Breasts: Skin/Breast: Denies rash Neurologic: Denies Abnormal speech present Psychiatric: Psychiatric: Denies behavioral changes [facility] Past Medical History Medical History (Updated 04/14/23 @ 14:36 by Dandre Joshi MD) Body mass index [BMI] 30.0-30.9, adult COVID Essential (primary) hypertension Hypercholesterolemia Hyperlipidemia, unspecified Melanoma of scalp Removed Metabolic syndrome (~04/17/22) Neoplasm of neck Removed Pain in unspecified joint Personal history of malignant melanoma of skin Polio age 8, no known residual deficits Post-void dribbling Pure hypercholesterolemia, unspecified Secondary and unspecified malignant neoplasm of lymph nodes of head, 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 Type 2 diabetes mellitus without complications Surgical History Surgical History History of colonoscopy History of liver biopsy History of skin graft Family History Family History Grandparent Diabetes mellitus Heart disease Mother Heart disease Diabetes mellitus Grandparent Diabetes mellitus Grandparent Cancer Carcinoma of colon Father Tuberculosis Social History Social History (Updated 10/16/22 @ 11:19 by Danielle Cline MA) Smoking status: Former smoker Alcohol intake: never Substance use: never Do You Feel Safe in your Home?: Yes Lack of Transportation: No Lack of Food: Never True Current Housing: I Have Housing Concerned About Future Housing: No Difficulty Paying Gas/Electric Bills: No Difficulty Paying for Meds: No Currently Unemployed: No Education: Don't Kn
[2023-04-14 16:42] LABS: Glucose Point of Care 127 mg/dl (65-105)
[2023-04-14 20:58] LABS: Glucose Point of Care 138 mg/dl (65-105)
[2023-04-14] MEDS: AZITHROMYCIN 500 MG/NS 250 ML 500 MG/250 ML BAG 250 MG IVPB (22:25)
[2023-04-15 04:00] VITALS: BP 94/71; PULSE 74; RESP 20; TEMP 36.9; O2SAT 96
[2023-04-15] MEDS: SODIUM CHLORIDE 0.9% IV 1,000 ML 75 ML IV CONT (05:33)
[2023-04-15] MEDS: LOPERAMIDE HCL 2 MG CAPSULE PO ×2 (05:38→12:45)
[2023-04-15 06:26] LABS: Basophils Percent Auto 0.5 % (0.2-1.2); Eosinophils Absolute Auto 0.7 K/mm3 (0-0.3); Hematocrit 31.7 % (42.0-52.0); Hemoglobin 10.7 g/dL (14.0-18.0); Immature Granulocyte Absolute 0.06 K/mm3 (0.00-0.031); Immature Granulocyte Percent A 0.7 % (0-0.5); Immature Platelet Fraction Pct 3.4 % (0.9-11.2); Lymphocytes Absolute Auto 0.51 K/mm3 (0.9-3.2); Lymphocytes Percent Auto 5.8 % (18.3-44.2); Mean Corpuscular HGB Conc 33.8 g/dl (32-36); Mean Corpuscular Hemoglobin 30.1 pg (26-34); Mean Corpuscular Volume 89.3 fl (80-100); Mean Platelet Volume 10.6 fl (7.4-10.4); Monocytes Absolute Auto 0.6 K/mm3 (0.1-0.6); Monocytes Percent Auto 7.2 % (2.6-8.5); Neutrophils Absolute Auto 6.9 K/mm3 (1.3-6.7); Neutrophils Percent Auto 77.8 % (45.5-73.1); Platelet Count Result 131 k/mm3 (150-375); Red Blood Count 3.55 M/mm3 (4.6-6.20); Red Cell Distribution Width 14.9 % (11.5-14.5); White Blood Count 8.8 K/mm3 (4.5-10.0)
[2023-04-15 06:41] LABS: Alanine Aminotransferase 33 U/L (6-50); Albumin Level 1.9 g/dL (3.5-5.1); Alkaline Phosphatase 87 U/L (38-126); Anion Gap 5 mmol/L (8-16); Aspartate Amino Transferase 40 U/L (17-59); Bilirubin,Total 0.4 mg/dL (0.2-1.3); Blood Urea Nitrogen 8 mg/dL (9-20); Calcium 5.8 mg/dL (8.4-10.2); Carbon Dioxide 20 mmol/L (22-30); Chloride 108 mmol/L (98-107); Estimated CRCL calculation 75 ml/min; Estimated Glomerular Filt Rate > 60; Glucose 101 mg/dL (65-110); Potassium 3.3 mmol/L (3.4-5.0); Sodium 133 mmol/L (137-145)
--- NOTE | 2023-04-15 07:32 | PC.NURSE ---
curriculum coach Pastora called and advised that protective isolation be discontinued, based on pt lab work he does not meet criteria for reverse isolation. No active order put in by MD - this was a nurse driven order on the floor due to chemo/radiation status.
[2023-04-15 07:55] VITALS: BP 103/72; PULSE 82; RESP 17; TEMP 37; O2SAT 94
[2023-04-15 08:00] VITALS: PULSE 95; RESP 17; O2SAT 94
[2023-04-15 08:03] LABS: Glucose Point of Care 123 mg/dl (65-105)
[2023-04-15 08:43] VITALS: PULSE 95
[2023-04-15] MEDS: CALCIUM CARBONATE (OSCAL) 500 MG TABLET PO (08:43)
[2023-04-15] MEDS: CHOLECALCIFEROL 1,000 UNITS TABLET 2000 UNITS PO (08:43)
[2023-04-15] MEDS: HYDROXYCHLOROQUINE SULFATE 200 MG TABLET PO (08:43)
[2023-04-15] MEDS: OPTI-GEN TAB 1 TABLET PO (08:43)
[2023-04-15] MEDS: METOPROLOL SUCCINATE EXT REL 25 MG TABCR PO (08:43)
[2023-04-15 11:43] VITALS: BP 97/66; PULSE 84; RESP 17; TEMP 37; O2SAT 95
[2023-04-15 11:49] LABS: Glucose Point of Care 163 mg/dl (65-105)
--- NOTE | 2023-04-15 11:54 | PM.DS ---
DS: Admitting Diagnosis Discharge Date 04/15/23 Admitting Diagnosis Nausea, vomiting diarrhea DS: Discharge Diagnosis Discharge Diagnosis (1) Pneumonia: Qualifiers: Laterality: bilateral Lung location: lower lobe of lung Pneumonia type: due to unspecified organism Qualified Code(s): J18.9 - Pneumonia, unspecified organism Code(s): J18.9 - Pneumonia, unspecified organism Status: Acute Assessment and Plan: Started on Rocephin and Zithromax 04/10 Await cultures Supportive care Continue to monitor 1/2 blood cx +GNB, repeat bld cx pending, leuk improving, sx improving (2) Dehydration: Code(s): E86.0 - Dehydration Status: Acute Assessment and Plan: Gentle hydration Daily intake and output (3) Metastatic melanoma: Code(s): C43.9 - Malignant melanoma of skin, unspecified Status: Acute Assessment and Plan: Follow-up in outpatient setting Undergoing radiation (4) Diarrhea: Code(s): R19.7 - Diarrhea, unspecified Status: Acute Assessment and Plan: ddx includes cdif, infectious colitis, radiation colitis, stool studies pending, hold off on further care at this time until dx made improving Plan DVT prophylaxis with SCDs GI prophylaxis not indicated Code status DNR DS: Summary Hospital Course Hospital Course: 82-year-old male with history of metastatic melanoma receiving radiation treatment outpatient, diabetes, presenting with nausea, vomiting and generalized weakness and currently being treated for COVID and possible CAP. Started on Rocephin and Zithromax 04/10 Await cultures Supportive care Continue to monitor 1/2 blood cx +GNB, repeat bld cx pending, leuk improving, sx improving ddx includes cdif, infectious colitis, radiation colitis, stool studies pending, hold off on further care at this time until dx made, improving with Imodium GI consulted, agree with Imodium p.r.n., consider colonoscopy outpatient, C diff negative, stable All symptoms improved and patient was discharged in stable condition with close outpatient follow-up. Please see above and med rec for details. Time Spent with Patient Time attestation: Total time spent providing and/or coordinating discharge services: Exam Narrative: General: No acute distress, alert and oriented per baseline HEENT: Atraumatic, normocephalic, mucous membranes moist CV: Regular rate and rhythm, S1, S2 Lungs: Clear to auscultation bilaterally, no rales or crackles noted, no wheezes, good air entry Abdomen: Soft, nontender, nondistended Extremities: Normal to inspection Skin: No rashes noted, no lesions or wounds seen Psych: Euthymic, normal affect DS: Data Data Completed and Pending Labs on day of discharge: Labs from last 24 hours 04/15/23 04/15/23 04/15/23 11:42 08:00 05:50 WBC 8.8 RBC 3.55 L Hgb 10.7 L Hct 31.7 L MCV 89.3 MCH 30.1 MCHC 33.8 RDW 14.9 H Plt Count 131 L MPV 10.6 H Immature Gran % (Auto) 0.7 H Neut % (Auto) 77.8 H Lymph % (Auto) 5.8 L Bledsoe % (Auto) 7.2 Eos % (Auto) 8.0 H Baso % (Auto) 0.5 Lymph # (Auto) 0.51 L Bledsoe # (Auto) 0.6 Eos # (Auto) 0.7 H Baso # (Auto) 0.0 Abs Immat Gran (auto) 0.06 H Absolute Neuts (auto) 6.9 H Absolute Nucleated RBC 0.0 Nucleated RBC % 0.0 % Immature Plt Fraction 3.4 Sodium 133 L Potassium 3.3 L Chloride 108 H Carbon Dioxide 20 L Anion Gap 5 L BUN 8 L Creatinine 0.60 L Estim Creat Clear Calc 75 Estimated GFR > 60 Glucose 101 POC Capillary Glucose 163 H 123 H Calcium 5.8 L Total Bilirubin 0.4 AST 40 ALT 33 Alkaline Phosphatase 87 Total Protein 4.0 L Albumin 1.9 L 04/14/23 04/14/23 20:54 16:40 WBC RBC Hgb Hct MCV MCH MCHC RDW Plt Count MPV Immature Gran % (Auto) Neut % (Auto) Lymph % (Auto) Bledsoe % (Au
--- NOTE | 2023-04-15 12:05 | WPDGIPROGNO ---
Progress Note: A&P Assessment and Plan (1) Diarrhea: Code(s): R19.7 - Diarrhea, unspecified Status: Acute Assessment and Plan: probably multifactorial, better, no c diff on imodium prn follow-up office if recurs, he is also planning to follow-up with oncologist at [facility] (2) Metastatic melanoma: Code(s): C43.9 - Malignant melanoma of skin, unspecified Status: Acute Assessment and Plan: advanced disease, oncology as outpatient (3) COVID: Code(s): U07.1 - COVID-19 Status: Acute Subjective Date/time seen: 04/15/23 12:05 Interval history: no diarrhea since yesterday at noon, he is comfortable and willing to go home Review of Systems Review of Systems: All systems reviewed & are unremarkable except as noted in HPI and below Exam Const: General: comfortable and no acute distress HENMT: Face/Nose/Sinus: Normal nares present Eyes: General: appearance normal, both eyes and all related structures Neck: Neck: supple Resp: Auscultation: clear to auscultation bilaterally Cardio: Rate: regular rate Rhythm: regular rhythm GI: Inspection: non-distended GI Palp: Yes Soft to palpation and No Tenderness to palpation present (GI) Auscultation: normal bowel sounds Skin: General skin exam: normal color Neuro: Speech: normal speech Motor exam (neuro): 5/5 motor strength present throughout Extrem: General: normal to inspection Psych: Mental Status: mental status grossly normal Objective Data Vital Signs Vital Signs: Vital Signs - 24 hr 04/14/23 14:00 04/14/23 16:00 04/14/23 20:00 Temperature 98.6 F 98.6 F 98.7 F Pulse Rate 80 80 89 Respiratory Rate 12 12 18 Blood Pressure 104/64 104/64 101/68 Pulse Oximetry 97 97 96 Oxygen Delivery 04/14/23 20:00 04/14/23 23:51 04/15/23 04:00 Temperature 97.7 F 98.4 F Pulse Rate 89 87 74 Respiratory Rate 18 18 20 Blood Pressure 99/64 L 94/71 L Pulse Oximetry 96 99 96 Oxygen Delivery Room Air 04/15/23 07:55 04/15/23 08:43 04/15/23 08:00 Temperature 98.6 F Pulse Rate 82 95 95 Respiratory Rate 17 17 Blood Pressure 103/72 Pulse Oximetry 94 94 Oxygen Delivery Room Air Intake/Output Intake/Output: Intake & Output 04/12/23 04/13/23 04/14/23 04/15/23 23:59 23:59 23:59 23:59 Intake Total 4555 4060 2080 1340 Output Total 7 6 300 1000 Balance 4548 4054 1780 340 Meds/Results Medications: Active Medications Generic Name Dose Route Start Last Admin Trade Name Smooth PRN Reason Stop Dose Admin Calcium Carbonate 500 mg 04/11/23 09:00 04/15/23 08:43 Calcium Carbonate (Oscal) 500 Mg Tablet PO 500 mg BID JUAN J Administration Hydroxychloroquine Sulfate 200 mg 04/11/23 08:00 04/15/23 08:43 Hydroxychloroquine Sulfate 200 Mg Tablet PO 200 mg DAILY@0800 JUAN J Administration Ceftriaxone Sodium 1 gm in 50 mls @ 100 mls/hr 04/11/23 22:00 04/14/23 21:55 Rocephin 1 Gm/Ns 50 Ml IVPB Infused Q24H JUAN J Infusion Azithromycin 500 mg in 250 mls @ 250 mls/hr 04/11/23 23:00 04/14/23 23:25 Zithromax IVPB Infused Q24H JUAN J Infusion Sodium Chloride 1,000 mls @ 75 mls/hr 04/11/23 04:15 04/15/23 05:33 Normal Saline Iv IV CONT 75 mls/hr .[id number] JUAN J Administration Loperamide HCl 2 mg 04/15/23 00:00 04/15/23 05:38 Loperamide Hcl 2 Mg Capsule PO 2 mg Q6H JUAN J Administration Metoprolol Succinate 25 mg 04/11/23 09:00 04/15/23 08:43 Metoprolol Succinate Ext Rel 25 Mg Tabcr PO 25 mg DAILY JUAN J Administration Multivitamins/Minerals 1 tablet 04/11/23 09:00 04/15/23 08:43 Opti-Gen Tab PO 1 tablet DAILY JUAN J Administration Vitamin D 2,000 units 04/11/23 09:00 04/15/23 08:43 Cholecalciferol 1,000 Units Tablet PO 2,000 units DAILY JUAN J Administration Radiology Results: ITS Impressions Chest X-Ray 04/14/23 10:09 IMPRESSION: 1. Patchy airspace opacities of the mid and lower lung zones with interval increase, likely pneumo
[2023-04-15] MEDS: POTASSIUM CHLORIDE 20 MEQ ER TABLET 40 MEQ PO (14:48)
--- NOTE | 2023-04-15 15:10 | PCOTNOTE ---
Attempted to see Patient 2 times this afternoon. Patient earlier stated he wanted to speak with the doctor before he is participating in any other activity. Patient spoke with MD, check back in with Patient and he stated he is going home, his son will be coming to pick him up and declined OT participation.
== END 2023-04-15 17:29 | disposition home or self-care (01) | DRG 193 ==
LOC: ANHED 20:52 → ANH3MEDSUR 23:16
PROVIDERS: Admitting Provider Internal Medicine; Emergency Provider Physician Assistant; PCP Family Medicine; Visit Provider Student in an Organized Health Care Education/Training Program
DX: J18.9 Pneumonia, unspecified organism (principal); U07.1 COVID-19; C77.0 Secondary and unspecified malignant neoplasm of lymph nodes of head, face and neck; C78.7 Secondary malignant neoplasm of liver and intrahepatic bile duct; C43.9 Malignant melanoma of skin, unspecified; I10 Essential (primary) hypertension; E86.0 Dehydration; E11.9 Type 2 diabetes mellitus without complications; E78.00 Pure hypercholesterolemia, unspecified; E78.5 Hyperlipidemia, unspecified; R19.7 Diarrhea, unspecified; Z86.12 Personal history of poliomyelitis; Z87.891 Personal history of nicotine dependence; Z92.3 Personal history of irradiation
CPT/HCPCS: 36415; 71045; 71046; 80053; 81001; 82948; 83605; 85025; 85055; 87040; 87077; 87493; 87637; 96361; 96365; 96367; 97161; 97165; 99285; A9270; G0378; J0456; J0696; J7030; J7040

== ENCOUNTER 2024-06-25 09:08 | Outpatient (CLI) | payer MEDICARE, SELFPAY ==
--- NOTE | ~2024-06-25 | PE_ITS ---
EXAMINATION: PET whole body melanoma DATE: 06/25/2024 12:06 INDICATION: Malignant melanoma of skin. TECHNIQUE: Blood glucose level was 121 mg/dL. 9.725 mCi of 18-fluorodeoxyglucose (18-FDG) was adminis tered i.v. Low dose computed tomography (CT) images were acquired from the skull vertex to the feet f or attenuation correction and anatomic localization. Automated exposure control was employed. Dose-le ngth product (DLP) was 1084 mGy-cm. Positron emission tomography (PET) images were acquired in the [facility] distribution. COMPARISON: None FINDINGS: Head/neck: There are no pathologically enlarged lymph nodes. Chest: Calcified pulmonary nodules and calcified hilar and mediastinal lymph nodes are consistent wit h old granulomatous disease. There is a 1.5 cm nodule in left upper lobe with increased activity. The re is mediastinal lymphadenopathy with increased activity. For example, a node in the anterior medias tinum measures 3.1 x 2.2 cm with maximum SUV of 40.3. There are moderate-sized right and small left p leural effusions. There are pleural masses and extrapleural masses in the anteroinferior left chest w ith increased activity. For example, a 2.9 x 2.4 cm mass to the left of the inferior sternum demonstr ates maximum SUV of 50.3.There is bilateral atelectasis with a dependent predominance. There is bilat eral gynecomastia. Abdomen/pelvis/proximal thighs: The liver, gallbladder, spleen, pancreas, left adrenal gland, and lef t kidney are normal. There are multiple masses in the right retroperitoneum with involvement of the r ight kidney. The right adrenal gland is obscured. The prostate is moderately enlarged. There is diver ticulosis of the colon without evidence of diverticulitis. The appendix is normal. There is aortocava l and periportal lymphadenopathy. For example, a periportal christie mass measures 7.2 x 5.1 cm. There i s a normal-sized right inguinal lymph node with increased activity. There are subcutaneous masses in the right lateral abdomen with increased activity. There is no free intraperitoneal fluid. There is n o osseous malignancy. IMPRESSION: 1. Right kidney masses, right retroperitoneal masses, left lung nodule, left pleural masses, body wal l masses, and chest, abdomen, and pelvis lymphadenopathy, consistent with metastatic disease. Conside r ultrasound-guided core needle biopsy of a mass to the left of the inferior sternum. Reviewed, dictated and finalized at location A. IMPRESSION: 1. Right kidney masses, right retroperitoneal masses, left lung nodule, left pl eural masses, body wall masses, and chest, abdomen, and pelvis lymphadenopathy, consistent with metastatic disease. Consider ultrasound-guided core needle bio psy of a mass to the left of the inferior sternum.
[2024-06-25 09:39] LABS: Glucose Point of Care 121 mg/dl (65-105)
--- OUTSIDE RECORDS SUMMARY | 2024-06-25 09:42 | XMS_ITS | Encounter Summary ---
Author Organization [facility] Address [address] [place] [address] Phone Care Team Providers Care Trigonometry Teacher Name Role Phone José Miguel Reyes MD Primary Care Provider [phone] Antonio Villarreal MD Unavailable [phone] Bin Porter MD PhD Unavailable + Encounter Details Date Type Department Care Team (Late st Contact Info) Description 09/17/2021 Treatment [facility] Infusion Therapy [address] [place] [address] Sandra Gregg MD [address] [facility] [address] [place] [address] Social History Tobacco Use Types Packs/Day Years Used Date Smoking Tobacco: Former Cigarettes 2 29 0 08/03/1960 - 08/03/1989 Smokeless Tobacco: Never AUDIT-C Answer Date Recorded Q1: How often do you have a drink containing alc ohol? Monthly or less 12/08/2020 Average Number of Drinks Not on file 021 Q3: How often do you have si x or more drinks on one occasion? Never 12/08/2020 Sex and Gender Information Value Date Recorded Sex Assigned at Not on file Legal Sex Male 8:39 AM CDT Gender Identity Male 07/20/2020 8:53 AM CDT Sexual Orientation Not on file Occupation Industry Job Start Date Job End Date Retired Not on file Not on file Not on file documented as of this encounter Plan of Treatment Not on file documented as of this encounter Visit Diagnoses Not on filedocumented in this encounter Additional Health Concerns Infection Onset Date Last Indicated Resolved Time COVID19 03/20/2023 03/21/2023 03/31/2023 3:05 AM [employer] WORK[employer] documented as of this encounter Care Teams Trigonometry Teacher Relationship Specialty Start Date End Date José Miguel Reyes MD [address] [place] [address] PCP - General Family Medicine [facility] [address] [place] [address] Referring Physician Plastic Surgery 10/29/18 Bin Porter MD PhD [id number] [facility] [address] [place] [address] Medical Oncologist/Vocational Technical Education Director Medical Oncology 09/05/20 documented as of this encounter
--- OUTSIDE RECORDS SUMMARY | 2024-06-25 09:42 | XMS_ITS | Continuity of Care Document ---
Author Organization [facility] Address [address] [place] [address] Phone Care Team Providers Care Nutrition Technician Name Role Phone Magaly Weber Unavailable Unavailable Procedures Procedure Date Post-op Follow-up Visit BF Polycarb Sphcyl [place] To +/-4d .12-2d Vision Svcs Frames Purchases Polycarb Lens Per Lens Progressive Lens, Polycarb Anti-reflective Coating Frames Deluxe Post-op Follow-up Visit Post-op Follow-up Visit Remove Cataract, Insert Lens PreOp Assessment Performed Eye Exam & Treatment IOLMaster Oct Eye Exam, New Patient Dilated Retinal Exam W Interpretation Ma No Script Refraction Frames Deluxe Progressive Lens, Polycarb Anti-reflective Coating Tint Photochromatic, Polycarb 9 Tax - Medical Advance Directives Directive Yes / No Effective Date File Name No Information Encounters Encounter Description Practice Location Reason(s) For Visit Diagnoses Date Provider Providers Copied on Encounter [facility], [address], [place], [place], [id number], [place] tel:[phone] [facility] No Information 0-201 0 Tia Mckenzie. [address], [place], [place], [facility], [place]. tel:[phone] [facility], [address], [place], [place], [id number], [place] tel:[phone] [facility] No Information Nov-3 0-201 0 [facility]. [address] [facility] [address], [place], [place], [id number], [place]. tel:[phone] Referring Provider: Magaly East, [address], [place], [place], [facility]. tel:[phone] hernandez Provider: Dottie Dutton, [address] [place], [place], [facility]. tel:[phone] [facility], [address], [place], [place], [id number], [place] tel:[phone] [facility] No Information Nov-1 6-201 0 Tia Silva [address], [place], [place], [facility], [place]. tel:[phone] [facility], [address] [place] [address] [address], [place], [place], [id number], [place] tel:[phone] [facility] No Information Oct-2 8-201 0 Tia Silva [address] , [address], [place], [place], [facility], [place]. tel:[phone] [facility], [address], [place], [place], [id number], [place] tel:[phone] [facility] No Information Oct-2 7-201 0 Tia Silva [address], [place], [facility], [place]. tel:[phone] [facility], [address], [place], [place], [id number], [place] tel:[phone] [place] [address] No Information Dec-0 8-201 0 Tia Mckenzie. [address] [place] [address] Dr, [address], [place], [place], [facility], . tel:[phone] Referring Provider: Magaly East, [address] [place] [address] Dr [address], [place], [place], [facility]. tel:[phone] [facility], [address] [place], [place] [address] [address], [place], [place], [id number], tel:[phone] [place] [address] No Information July-0 7-200 9 Aleks Thomas. [address] [place] [address], [facility], . tel:[phone] Referring Provider: José Miguel Reyes MD, [address] [place], [address]. tel:[phone] [facility], [address] [place], [place] [address] [address], [place], [place], [id number], tel:[phone] [place] [address] No Information July-0 7-200 9 [facility]. [address] [facility], [facility] [address], [place], [place], [id number], . tel:[phone] Referring Provider: William Fink, [address] [place] [address], [facility]. tel:[phone] g Provider: Alexsandra Islas, [address] [place] [address], [facility]. tel:[phone] Family History Family Member Type Diagnosis Age At Onset No Information Payers Payer name Insurance type Covered democrat ID Authoriza tion(s) No Information Social History Type Description Quantity Date Captured Comments Sex Male Smoking Status No Information Chief Complaint And Reason For Visit No Information Reason For Referral Reason For Referral No Information History Of Present Illness Encounter Date Complaint History Of Prese nt Illness No Information Functional Status Date Functional Assessmen t No Information Instructions Date Instruction Additional Infor mation No Information Assessments Type Assessment Date No Information Patient Care Teams Name Effective Dates (start - stop) Status Members No Information
--- OUTSIDE RECORDS SUMMARY | 2024-06-25 09:42 | XMS_ITS ---
Author Organization [facility] Address [address] [place] [address] Care Team Providers Care Stone Gluer Name Role Phone José Miguel Reyes MD Primary Care Provider [phone] nAtonio Villarreal MD Unavailable Bin Porter MD PhD Unavailable + Active Problems Problem Noted Date Diagnosed Date CINV (chemotherapy-induced nausea and vomiting) 11/07/2022 Age-related osteoporosis wit hout current pathological fracture 08/23/2021 Moderate malnutrition 01/26/2021 Assessment & Plan (02/01/2021 12:47 PM CDT): A: in setting of malignancy, multiple hospitalizations, autoimmune complications of therapy P: RD consulted, regular diet, encourage intake Assessment & Plan (01/29/2021 3:52 PM CDT): A: in setting of malignancy, multiple hospitalizations, autoimmune complications of therapy P: RD consulted, regular diet, encourage intake Assessment & Plan (01/28/2021 11:30 AM CDT): Due to malignancy and electrolyte abnormalities and subsequent diet restrictions -nutrition consult -regular diet ordered 01/28 Hyponatremia 01/24/2021 Assessment & Plan (02/01/2021 12:46 PM CDT): A: euvolemic to hypovolemic appearing. Ur Osm 780, Ur Na 78, serum Osm 264, c/w SIADH vs. Adrenal insufficiency vs. Hypothyroidism. Has been on steroid taper and not missed significant doses. TSH unremarkable, normal letha stim test. Labs most consistent with SIADH. No obvious causes via medication, melanoma not common cause of SIADH. BMRI to rule out brain metastases negative. Patient developed worsening hyponatremia and was transferred to MICU for closer monitoring. In ICU improvement effect was seen from previously adminstered salt tabs but patient began to have overcorrection and was briefly on D5, now improving stably on salt tabs and fluid restriction. Sodium has since been stable on 1L fluid restriction, ~134-135 past 24 hrs. Today 137 P: -Fluid restriction 1L qdaily, continue NaCl 2g TIDAC. 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 Rec'd repeat MRI 4-6 wks -Na+ q 6 hours Assessment & Plan (01/31/2021 1:21 PM CDT): A: euvolemic to hypovolemic appearing. Ur Osm 780, Ur Na 78, serum Osm 264, c/w SIADH vs. Adrenal insufficiency vs. Hypothyroidism. Has been on steroid taper and not missed significant doses. TSH unremarkable, normal letha stim test. Labs most consistent with SIADH. No obvious causes via medication, melanoma not common cause of SIADH. BMRI to rule out brain metastases negative. Patient developed worsening hyponatremia and was transferred to MICU for closer monitoring. In ICU improvement effect was seen from previously adminstered salt tabs but patient began to have overcorrection and was briefly on D5, now improving stably on salt tabs and fluid restriction. Sodium has since been stable on 1L fluid restriction, ~134-135 past 24 hrs P: -Fluid restriction 1L qdaily, continue NaCl 2g TIDAC -Appreciate Nephrology recommendations, will discuss about increasing fluid restriction to 1.5L daily Weakness 01/24/2021 Assessment & Plan (02/01/2021 12:47 PM CDT): A: w/ ongoing weakness from last d/c, worsened over last several days. 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 Normal CK/TSH. Mildly weaker after coming out of ICU but without change in aldolase/CK. Patient not interested in placement. P: - PT/OT, encourage activity, continue prednisone 60 qdaily - Home health care PT planned Assessment & Plan (01/26/2021 5:22 PM CDT): In setting of electrolyte abnormalities -PT consult Assessment & Plan (01/31/2021 1:22 PM CDT): A: w/ ongoing weakness from last d/c, worsened over last several days. 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 Normal CK/TSH. Mildly weaker after coming out of ICU but without change in aldolase/CK. Patient not interested in placement. P: - PT/OT, encourage activity, continue prednisone 60 qdaily - Home health care PT planned Hyperglycemia 01/24/2021 Assessment & Plan (01/26/2021 12:53 PM CDT): A: hyperglycemia with steroid use due to autoimmune complications of cancer- directed therapy P: reducing prednisone to 60 mg qdaily, will reduce NPH to 8U with steroids, SSI Myasthenia gravis 12/01/2020 Assessment & Plan (02/01/2021 12:46 PM CDT): A: admitted 900-12/12, s/p PLEX, +AChR antibody. Diplopia has resolved. 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 Diplopia has resolved. P: - Continue pyridostigmine Assessment & Plan (12/11/2020 12:47 PM CDT): Patient presents with 2 months of progressively worsening double vision which he states started prior to immunotherapy initiation. Also has associated ptosis bilaterally. The differential diagnosis is broad at this time and includes MG vs. ocular myasthenia vs ocular myositis. MRI/MRV on admission was unremarkable for acute findings. - MG/NCV was performed 12/01 with findings consistent with both myasthenia gravis and myopathy - Neuromuscular consult team recommended starting plasma exchange (5 sessions) for presumed myasthenia gravis as well as left deltoid muscle biopsy --> likely to take place this upcoming week - Status post RIJ 12/01 for PLEX; completed 5 sessions with plan for 5 total sessions. PLEX (12/02 -). Can remove pheresis catheter on 12/09. - Laboratory medicine consulted; following patient - Prednisone 20mg daily, plan to increase by 5mg every 3 days to goal of 50mg daily (12/06 - ) - NIF/FVC Q12H - Follow up myasthenia panel ([place]) - Myopathy panel pending - Pyridostigmine 60mg TID (12/07 - ) - ACCS consulted for muscle biopsy, appreciate recs. Successful biopsy on 12/08. Prelim read immune related inflammatory myopathy that can be seen with ICI. Strongly contra-indicated medications: - Telithromycin ([place]) - FDA has designated a b lack box warning (see below for explanation) on this drug in MG patients. - Botulinum toxin (e.g. Botox) - D-penicillamine Some prescription medications can be associated with worsening of symptoms of mysathnia and should generally be avoided. If used, please monitor patient carefully for any signs or symptoms of worsening mysasthenia: Antibiotics: - Fluoroquinalones including Ciprofloxacin and Levofloxacin - Macrolide antibiotics including Azithromycin, Erythtomicyin. Also avoid Ketolide antibiotics - Aminoglycoside antibiotics including Gentamycin, Neomycin Other medications: - succinylcholine, d-tubocararine, or other neuomuscular blocking agents - Quinine, Quinidine, Procainamide - Magnesium (including laxative and antacids with high magnesium concentrations), particularly IV magnesium - [place] - Iodinated contrast agents - B-blockers (both systemic and occular preparations) - Calcium channel blockers - statin drugs (likely ok if tolerated in the past) Assessment & Plan (12/01/2020 6:53 AM CDT): Pt presents with 2 months of progressively worsening double vision which he states started prior to immunotherapy initiation. Also has associated ptosis bilaterally. The Ddx is broad at this time and includes MG vs. ocular myasthenia vs ocular myositis MRI/MRV overnight preliminary read is unremarkable for acute findings. He was given 1mg/kg solumedrol BID for now Contineu to monitor overnight. Follow up final MRI/MRV read in AM. 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 Presented with troponin in 800s. EKG with NSR. TTE with normal LVEF, grade 1 DD and normal pericardium. Troponin downtrended to 500s. No other clear explanation for elevated troponin at this time. Cardiology oncology consulted; still concern for possible myocarditis despite unremarkable TTE. - Cardiac MRI without evidence of myocarditis - D/C methylprednisolone given no evidence of myocarditis on cMRI - Cardio-oncology following, appreciate recommendations - Continue telemetry for now - Continue on statin (patient was on this medication prior); holding lisinopril as getting apheresis - Imdur 60mg daily - Nuclear stress test normal at rest and with stress. - Oncology continues to have high suspicion for ICI myocarditis despite negative cMRI and recommending cardiac biopsy. 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 Per cardio-onc, cardiac biopsy not necessary and would start treatment for myocarditis. - Start IV methylprednisolone 1mg/kg (12/10 - ), will monitor for evidence of recurrent MG. Has tolerated well. Will transition to prednisone 100mg PO daily on discharge and further taper will be determined by outpatient oncologist. - will trend NTpro BNP, has remained stable. 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 Presented with troponin in 800s. EKG with NSR. TTE with normal LVEF, grade 1 DD and normal pericardium. Troponin downtrended to 500s. No other clear explanation for troponinemia at this time. Continue 1mg/kg solumedrol q12 for now. Follow up cardiology recs Will monitor on telemetry overnight Continue on statin and lisinopril HTN (hypertension) 12/01/2020 Assessment & Plan (12/09/2020 4:11 PM CDT): - Holding lisinopril for PLEX sessions. - Restart at DC, given completed apheresis. 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 Overview (09/08/2020): Added automatically from request for surgery [id number] Encounter for screening colonoscopy 09/05/2020 Overview (09/05/2020): Added automatically from request for surgery [id number] History of nonmelanoma skin cancer 03/08/2020 Encounter for removal of sutures 02/20/2019 Osteoarthritis 12/16/2018 Low back pain 12/16/2018 Spinal stenosis of lumbar region 12/16/2018 Synovial cyst of lumbar spine 12/16/2018 Melanoma of scalp (CMS/HCC) 11/12/2018 Cancer Staging:Pathologic stage from 09/30/2018:Stage IIA(pT3a, pN0, cM0) - Signed by Faheem Arevalo MD on 02/26/2023 Assessment & Plan (02/01/2021 12:46 PM CDT): A: follows with Dr. Porter. Was previously on Protocol #[id number] Nivolumab + Relatlimab and taken off due to related side effects of myositis, myasthenia gravis, myocarditis, hepatitis. Imaging 12/28 w/ stable liver disease, no other mets. Labs indicate autoimmune pathology such as hepatitis, myositis, myocarditis may not be active at this time. P: -Appreciate Medical Oncology recommendations -Continue prednisone 60 mg qdaily -Continue Bactrim, MMF Assessment & Plan (01/27/2021 11:57 AM CDT): Dx 2019 with lesion on scalp -Metastatic recurrence to liver 07/2020 (BRAF negative) -Initiated on Nivo + Relatlimab trial 11/02/20 c/b immune checkpoint inhibitor associated myopathy, acetylcholine-receptor ab mediated myasthenia graves, myocarditis and hepatitis -immunotherapy toxicities treated with PLEX x 5 sessions, muscle Bx, steroids and pyridostigmine. Seen by Neuro and Neuro [facility] -continues on Prednisone 60 mg, pyridostigmine 60 mg TID and mycophenolate -follows with Dr. Porter Assessment & Plan (01/29/2021 3:50 PM CDT): A: follows with Dr. Porter. Was previously on Protocol #[id number] Nivolumab + Relatlimab and taken off due to related side effects of myositis, myasthenia gravis, myocarditis, hepatitis. Imaging 12/28 w/ stable liver disease, no other mets. Labs indicate autoimmune pathology such as hepatitis, myositis, myocarditis may not be active at this time. P: -Appreciate Medical Oncology recommendations -Continue prednisone 60 mg qdaily -Continue Bactrim, MMF Assessment & Plan (12/12/2020 6:05 PM CDT): Malignant melanoma of scalp, stage IIA ([id number]). BRAF V600E negative by IHC. Metastatic recurrence of liver. BRAF V600E negative by IHC. On 11/02/2020, received cycle 1 on CA224 protocol #[id number] and randomized to nivolumab 480 mg plus relatlimab 480 mg Q4W. -Immunotherapy now on hold given concern for toxicity -Medical oncology consulted. Will follow up with Dr. Nice outpatient. Assessment & Plan (12/01/2020 6:54 AM CDT): Malignant melanoma of scalp, stage IIA ([id number]). BRAF V600E negative by IHC. Metastatic recurrence of liver. BRAF V600E negative by IHC. On 11/02/2020, received cycle 1 on CA224 protocol #[id number] and randomized to nivolumab 480 mg plus relatlimab 480 mg Q4W. 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 - Continue on SSI and DM2 diet - NPH 8 units with methylpred. - DM educator consult. Likely to DC w/ temporary NPH while on steroid taper. Assessment & Plan (12/01/2020 6:55 AM CDT): Home regimen of onglyza and glimepride. Continue on SSI and DM2 diet Current Treatment and Therapy Plans No current plan information found. Other Current Plans Zoledronic Acid (Reclast) Infusion* Plan Start Date:10/30/2022 Plan Provider:Sandra Gregg MD Linked Problems Age-related osteoporosis wit hout current pathological fracture Treatment Medications No medications scheduled. Past Treatment and Therapy Plans Oncology Chemotherapy Treatment Plan Name Start Date Discontinue Date Treatment Medications Discontinue Reason Plan Provider Cycles Temozolomide PO 28 day cycles 3 07/31/2023 temozolomide (TEMODAR) Progressive Disease Bin Porter MD PhD 8 of 12 cycles started - [facility] - Melanoma - [id number] - Part E - [id number] + Nivolumab Co-administrati on - Every 4 weeks 11/02/2020 12/28/2020 [facility] [id number] (relatlimab)/n ivolumab (/C [id number]) 480 mg/480 mg in sodium chloride 0.9% 120 ml (ANTI-LAG-3) Toxicity/Comp lication Bin Porter MD PhD 1 of 3 cycles started Nivolumab 480 mg 28 Day Cycles 9 11/26/2018 nivolumab (OPDIVO) Change in Level of Care Bin Porter MD PhD Treatment not started Oncology Treatment (2) Plan Name Start Date Discontinue Date Treatment Medications Discontinue Reason Plan Provider Cycles [id number] [facility] - Phase 1 - ERAS-254 - Naporafenib / [facility]ib [facility] (/E DK-254[facility] Naporafenib (ERAS-254) (/E DK-254/SEA CRAFT-)[facility] trametinib (/E DK-254/SEA CRAFT-) Patient Preference Bin Porter MD PhD Treatment not started Radiation Treatments * Course C1_Abdomen_202204/02/2023 - 04/09/2023 Treatment Period Energy Fraction Dose Fractions Total Dose Plans Planned SBRT L ABDMN 04/02/2023 - 04/09/2023 1,000 5 / 5,000 SBRT R KIDNEY 04/09/2023 - 04/09/2023 900 5 / 4,500 Reference Points Delivered LtDiaphragm_5000 04/02/2023 - 04/09/2023 5,000 RtKidney_4500 04/09/2023 - 04/09/2023 4,500 Lifetime Dose Tracking * Chemical Lifetime Dose Automatic Entry Manual Entr y Fluoro Time 0.6 minutes 0.6 minutes 0 minutes Air kerma at the reference point (Ka,r) 1 mGy 1 mGy 0 mGy DLP 25,826.9 mGycm 25,826.9 mGycm 0 mGycm Resolved Problems Problem Noted Date Diagnosed Date Resolved Date Diarrhea 01/28/2021 01/31/2021 Assessment & Plan (01/29/2021 11:02 AM CDT): Diarrhea while in ICU, C diff ordered 01/27 and negative -bright red blood in stool on 01/28, Hgb trended and stable and no diarrhea overnight Shortness of breath 01/24/2021 01/30/20 Assessment & Plan (01/26/2021 12:50 PM CDT): A: not requiring oxygen. May have some degree of diaphgragmatic weakness. RVP negative. No obvious edema or crackles on exam. Trop negative. P: CTM Elevated LFTs 01/24/2021 01/29/2021 Assessment & Plan (01/26/2021 12:51 PM CDT): A/P: previously had elevated LFTs (peak AST 1119, ALT 1195 12/28) 2/2 immune checkpoint inhibitor induced hepatitis. Now normalized.
--- OUTSIDE RECORDS SUMMARY | 2024-06-25 09:42 | XMS_ITS | Encounter Summary ---
Author Organization [facility] Address [address] [place] [address] Phone Care Team Providers Care Quality Assurance Tech Name Role Phone José Miguel Reyes MD Primary Care Provider [phone] Antonio Villarreal MD Unavailable [phone] Bin Porter MD PhD Unavailable + Encounter Details Date Type Department Care Team (Latest Contact Info) Description 04/10/2023 Orders Only [facility] Scanning, Provider Social History Tobacco Use Types Packs/Day Years Used Date Smoking Tobacco: Former Cigarettes 2 29 0 08/03/1960 - 08/03/1989 Smokeless Tobacco: Never AUDIT-C Answer Date Recorded Q1: How often do you have a drink containing alcohol? Never 02/28/2023 Q2: How many drinks containi ng alcohol do you have on a typical day when you are drinking? Patient does not drink Q3: How often do you have si x or more drinks on one occasion? Never 02/28/2023 Sex and Gender Information Value Date Recorded [...] on file documented as of this encounter Procedures Procedure Name Priority Date/Time Associated Diagnosis Comments SCAN - RADIOLOGY/IMAGING 04/10/2023 documented in this encounter Results * SCAN - RADIOLOGY/IMAGING (04/10/2023) Anatomical Region Laterality Modality Other us Provider Scanning Edited Result - Final documented in this encounter Visit Diagnoses Not on filedocumented in this encounter Care Teams Quality Assurance Tech Relationship Specialty Start Date End Date José Miguel Reyes MD [address] [place] [address] PCP - General Family Medicine 10/28/18 Antonio Villarreal MD [address] [place] [address] Referring Physician Plastic Surgery 10/29/18 [place] PhD [address] [place] [address] [place] [id number] Medical Oncologist/Public Relations Medical Oncology 09/05/20 documented as of this encounter
--- OUTSIDE RECORDS SUMMARY | 2024-06-25 09:42 | XMS_ITS | Clinical Summary ---
Author Organization [facility] Address [address] [place] [address] Care Team Providers Care Flat Folder Name Role Phone José Miguel Reyes MD Primary Care Provider [phone] Antonio Villarreal MD Unavailable [phone] Bin Porter MD PhD Unavailable + Allergies Active Allergy Reactions Criticality Noted Date Comments Nivolumab Other (See comments) Low 03/23/2021 Overall body issues Other Other (See comments) Low 03/23/2021 Relatlimab- overall body issues Medications multivit with minerals/lutei n (MULTIVITAMIN 50 PLUS ORAL) Take 1 tablet by mouth automation tester before breakfast Calcium 210 mg +Vitamin D 1000 international units Calcium 600 mg/ Vitamin D 2000 international units Total calcium 810 mg daily +Vitamin D 3000 international units daily. Active cholecalcifero l (Vitamin D3) 2000 unit tablet Take 1 tablet (2,000 Units total) by mouth daily 30 tablet 2 Active Active Problems Problem Noted Date Diagnosed Date [...] Plan (01/25/2021 4:22 PM CDT): A: admitted , s/p PLEX, +AChR antibody. Diplopia has resolved. [...] NIF/FVC Q12H - Follow up myasthenia panel ([place]) - Myopathy panel pending - Pyridostigmine 60mg [...] high magnesium concentrations), particularly IV magnesium - [place] - Iodinated contrast agents - B-blockers (both [...] lisinopril for PLEX sessions. - Restart at [place], given completed apheresis. 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 Porter. Was previously on Protocol #[id number] Nivolumab + Relatlimab and taken off due [...] with Dr. Porter. Was previously on Protocol #[id number] Nivolumab + Relatlimab and taken off due [...] CDT): Malignant melanoma of scalp, stage IIA ([id number]). BRAF V600E negative by IHC. Metastatic recurrence of liver. BRAF V600E negative by IHC. On 11/02/2020, received cycle 1 on CA224 protocol #[id number] and randomized to nivolumab 480 mg plus relatlimab 480 mg Q4W. -Immunotherapy now on hold given concern for toxicity -Medical oncology consulted. Will follow up with Dr. Nice outpatient. Assessment & Plan (12/01/2020 6:54 AM CDT): Malignant melanoma of scalp, stage IIA ([id number]). BRAF V600E negative by IHC. Metastatic recurrence of liver. BRAF V600E negative by IHC. On 11/02/2020, received cycle 1 on CA224 protocol #[id number] and randomized to nivolumab 480 mg plus [...] glimepride. 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 Immunizations Immunization Administration Dates Next Due Influenza, Quadrivalent, Jodie l Culture-based MDCK, Antibiotic Free, Intramuscular 01/08/2019 Influenza, Quadrivalent, Hig h Dose, Preservative Free, Intrr 01/25/2021,01/27/2020 Influenza, Trivalent, High D ose, Split, Preservative Free, Intramuscular 01/21/2018,01/04/2017,01/22/2016,01/10 Influenza, Trivalent, IM (MDV) 01/13/2014,2012 Pfizer SARS-CoV-2 Monovalent Vaccination (12+ Yrs) PURPLE 06/21/2020,05/31/2020 Pneumococcal Conjugate PCV 13 01/30/2017 Surgical History Surgery Date Site/Laterality Comments MELANOMA RESECTION 09/29/2018 BASAL CELL CARCINOMA EXCISION 04/01/2018 - 03/31/2019 Le ft brow(MOHS) LIVER BIOPSY 09/21/2020 CENTRAL LINE PLACEMENT > 5 YEARS 12/01/2020 N/A CATARACT EXTRACTION 04/01/2009 - 03/31/2010 VASECTOMY 04/01/1981 - 03/31/1982 Medical History Medical History Date Comments Type 2 diabetes mellitus (HCC) Pneumonia Melanoma (HCC) 2019 metastatic Cataract 2009 Neuromuscular disorder (HCC) 11/30/2020 Dyslipidemia Hypertension Type 3 autoimmune hepatitis (HCC) CINV (chemotherapy-induced nausea and vomiting) 11/07/2022 Family History Medical History Relation Name Comments Diabetes Maternal Grandfather Humza Heart disease Maternal Grandfather Humza Diabetes Mother Shannon Heart disease Mother Shannon Cancer Paternal Grandfather Jonn Diabetes Paternal Grandmother Annemarie Hip fracture Neg Hx Osteoporosis Neg Hx Scoliosis Neg Hx Relation Name Status Comments Father Maternal Grandfather Humza Mother Shannon Paternal Grandfather Jonn Paternal Grandmother Annemarie Social History Tobacco Use Types Packs/Day Years Used Date Smoking Tobacco: Former Cigarettes 2 29 0 08/03/1960 - 08/03/1989 Smokeless Tobacco: Never Tobacco Cessation:Counseling Given: Not Answered AUDIT-C Answer Date Recorded Q1: How often [...] file Not on file Not on file Obstetrics History Last Filed Vital Signs Vital Sign Reading Time Taken Comments Blood Pressure 144/81 10/09/2023 12:47 PM CDT Pulse 69 10/09/2023 12:46 PM CDT Temperature 36.2 C (97.1 F) 10/09/2023 12:42 PM CDT Respiratory Rate 16 10/09/2023 12:46 PM CDT Oxygen Saturation 99% 10/09/2023 12:46 PM CDT Inhaled Oxygen Concentration - - Weight 74.8 kg (165 lb) 10/09/2023 12:42 PM CDT Height 168.7 cm (5' 6.42 ) 10/09/2023 12:42 PM C DT Body Mass Index 26.3 10/09/2023 12:42 PM CDT Plan of Treatment Health Maintenance Due Date Last Done Comments Albumin Creatinine Ratio, Urine 1942 Depression Screening 1942 Dilated Eye Exam 1942 Foot Exam 1942 DTaP/Tdap/Td Vaccine (1 - Tdap) 1953 Hepatitis B Screening 1960 Zoster Vaccine (1 of 2) 1961 Well Visit 65+ 08/06/2007 Pneumococcal vaccine 65+ (2 of 2 - PPSV23) 03/27/2017 01/30/2017 Hemoglobin A1C 11/20/2023 05/22/2023, 03/02, 12/01/2020, Additional history exists Covid-19 Vaccine (2023-2 5 season) 2023 04/05/2021, 06/21/2020, 05/31/2020 Lipid Panel 05/22/2024 05/22/2023, 02/0 10/2022, 03/22/2021, Additional history exists Fall Risk Assessment 07/14/2024 07/15/2023, 02/28/2023, 02/01/2021 eGFR 10/08/2024 10/09/2023, 05/0 04/2023, 07/10/2023, Additional history exists Influenza Vaccine Completed 01/10/2024, , 01/27/2020, Additional history exists Procedures Procedure Name Priority Date/Time Associated Diagnosis Comments EGFR STAT 10/09/2023 12:30 PM CDT Melanoma of scalp (HCC) HEMOGLOBIN A1C Routine 05/22/2023 8:43 AM TRANSFER PROFESSOR LIPID PANEL Routine 05/22/2023 8:43 AM TRANSFER PROFESSOR from Last 3 Months or Most Recently Relevant to Health Maintenance Results * eGFR (10/09/2023 12:30 PM CDT) eGFR 88 >=60 mL/min/1. 73 m2 Comment: Interpretive Data Reference Interval Normal >/= 90 mL/min/1.73m2 Mildly decreased* 60 - 89 mL/min/1.73m2 Mildly to moderately decreased 45 - 59 mL/min/1.73m2 Moderately to severely decreased 30 - 44 mL/min/1.73m2 Severely decreased 15 - 29 mL/min/1.73m2 Kidney Failure < 15 mL/min/1.73m2 *Relative to young adult level Estimated glomerular filtration rate is determined by the 2020 CKD-EPI equation recommended by the National Kidney Foundation (A Unifying Approach to GFR Estimation: Recommendations of the NKF-ASK Task Force on Reassessing the Inclusion of Race in Diagnosing Kidney Disease, JASN 2020). The CKD-EPI equation should not be used for patients with unstable renal function and has not been validated in children and those over 70. Current interpretive data was last reviewed 2021. Testing performed by: [facility], [address] [place] [id number] Blood 10/09/2023 12:3 0 PM CDT 10/09/2023 12:36 PM CDT Bin Porter MD PhD LAB BLOOD ORDERABL ES Final Result [facility] Department [place] [address] * (ABNORMAL) Hemoglobin A1c (05/22/2023 8:43 AM TRANSFER PROFESSOR) Hgb A1C 6.4(H) 4.0 - 5.6 % [facility] Estimated Average Glucose 137 mg/dL [facility] Comment: The ADA recommends reporting an estimated Average Glucose (eAG) with all Hemoglobin A1c results using the equation derived from a study of 507 normal and diabetic adults. Minority populations were underrepresented and children were not included. (Diabetes Care 2020; 43(S1): S66-S76). The eAG is not equivalent to a fasting glucose. Blood 05/22/2023 8:43 AM TRANSFER PROFESSOR 05/22/2023 9:46 AM TRANSFER PROFESSOR us José Miguel Reyes MD LAB BLOOD ORDERABLES Final Re sult [facility] [place] [address] * (ABNORMAL) Lipid panel (05/22/2023 8:43 AM TRANSFER PROFESSOR) Cholesterol 239(H) 30 - 199 mg/dL [facility] Comment: Interpretive Data Ages < or = 19 years Acceptable: <170 mg/dL Borderline high: 170-199 mg/dL High: >or= 200 mg/dL Ages > or = 20 years Desirable: <200 mg/dL Borderline high: 200-239 mg/dL High: >or= 240 mg/dL Literature References: 1. Expert Panel on Integrated Guidelines for Cardiovascular Health and Risk Reduction in Children and Adolescents. Pediatrics 2011;128:S213 2. NCEP Expert Panel. Circulation 2004;110:227 Current Interpretive Data was last revised on 2017. Triglycerides 101 <=149 mg/dL [facility] Comment: Interpretive Data Ages < or = 9 years Acceptable: <75 mg/dL Borderline high: 75-99 mg/dL High: >or= 100 mg/dL Ages 10 to 20 years Acceptable: <90 mg/dL Borderline high: 90-129 mg/dL High: >or= 130 mg/dL Ages > or = 20 years Desirable: <150 mg/dL Borderline high: 150-199 mg/dL High: 200-499 mg/dL Very high: >or= 499 mg/dL Literature References: 1. Expert Panel on Integrated Guidelines for Cardiovascular Health and Risk Reduction in Children and Adolescents. Pediatrics 2011;128:S213 2. NCEP Expert Panel. Circulation 2004;110:227 Current Interpretive Data was last revised on 2017. HDL 57 >=40 mg/dL [facility] Comment: Interpretive Data Ages < or = 19 years Acceptable: >45 mg/dL Borderline low: 40-45 mg/dL Low: <40 mg/dL Ages > or = 20 years Desirable: >or= 60 mg/dL Low: <40 mg/dL Literature References: 1. Expert Panel on Integrated Guidelines for Cardiovascular Health and Risk Reduction in Children and Adolescents. Pediatrics 2011;128:S213 2. NCEP Expert Panel. Circulation 2004;110:227 Current Interpretive Data was last revised on 2017. LDL, calculated 162(H) <=129 mg/dL [facility] Comment: Interpretive Data Ages < or = 19 years Acceptable: <110 mg/dL Borderline high: 110-129 mg/dL High: >or= 130 mg/dL Ages > or = 20 years Optimal: <100 mg/dL Near optimal: 100-129 mg/dL Borderline high: 130-159 mg/dL High: >160 mg/dL Literature References: 1. Expert Panel on Integrated Guidelines for Cardiovascular Health and Risk Reduction in Children and Adolescents. Pediatrics 2011;128:S213 2. NCEP Expert Panel. Circulation 2004;110:227 Current Interpretive Data was last revised on 2017. Non-HDL Cholesterol 182 mg/dL [facility] Comment: Interpretive Data Ages < or = 19 years Acceptable: <120 mg/dL Borderline high: 120-144 mg/dL High: >145 mg/dL Ages > or = 20 years When triglycerides are >200 mg/dL, Non-HDL cholesterol is a secondary target of therapy with treatment goals that are 30 mg/dL greater than the LDL cholesterol target. Literature References: 1. Expert Panel on Integrated Guidelines for Cardiovascular Health and Risk Reduction in Children and Adolescents. Pediatrics 2011;128:S213 2. NCEP Expert Panel. Circulation 2004;110:227 Current Interpretive Data was last revised on 2017. Chol/HDL ratio 4 [facility] Blood 05/22/2023 8:43 AM TRANSFER PROFESSOR 05/22/2023 9:45 AM TRANSFER PROFESSOR us José Miguel Reyes MD LAB BLOOD ORDERABLES Final Re sult [facility] Department [place] [address] from Last 3 Months or Most Recently Relevant to Health Maintenance Insurance [employer] CHOICE MEDICARE PPO [employer] CHOICE MEDICARE PPO [employer] CLAIMS OFFICE MEDICARE [employer] CHOICE MEDICARE PPO [employer] CHOICE MEDICARE PPO [employer] CHOICE MEDICARE PPO Advance Directives For more information, please contact: [phone] Documents on File Type Date Recorded Patient Mill Representative Expl anation ADVANCE DIRECTIVE 09/21/2020 6:31 AM Power of Land Surveyor Assistant-Medical * Full Code (Latest Code Status on File) Date Activated Date Inactivated Comments 05/17/2022 8:11 AM 05/18/2022 5:22 AM * Full Code Date Activated Date Inactivated Comments 01/24/2021 7:09 PM 02/01/2021 10:21 PM * Full Code Date Activated Date Inactivated Comments 11/30/2020 11:21 PM 12/12/2020 11:06 PM Care Teams Flat Folder Relationship Specialty Start Date End Date José Miguel Reyes MD [address] [place] [address] PCP - General Family Medicine 10/28/18 Antonio Villarreal MD [address] [facility] [place] [address] Referring Physician Plastic Surgery 10/29/18 Bin Porter MD PhD [address] [facility] [address] [address] Medical Oncologist/Crop Puller Medical Oncology 09/05/20
--- OUTSIDE RECORDS SUMMARY | 2024-06-25 09:42 | XMS_ITS | Encounter Summary ---
Author Organization [facility] Address [address] [place] [address] Phone Care Team Providers Care Farm Marketer Name Role Phone José Miguel Reyes MD Primary Care Provider [phone] Antonio Villarreal MD Unavailable [phone] Bin Porter MD PhD Unavailable + Encounter Details Date Type Department Care Team (Latest Contact Info) Description 11/29/2022 Orders Only [facility] Scanning, Provider Social History Tobacco Use [...] Priority Date/Time Associated Diagnosis Comments SCAN - PATHOLOGY 11/29/2022 3:32 PM CDT documented in this encounter Results * SCAN - PATHOLOGY (11/29/2022 3:32 PM CDT) us Provider Scanning Final Result documented in this encounter Visit Diagnoses Not on filedocumented in this encounter Additional Health Concerns Infection Onset Date Last Indicated Resolved Time COVID19 03/20/2023 03/21/2023 03/31/2023 3:05 AM COMPRESSOR OPERATOR ADJUSTER documented as of this encounter Care Teams Farm Marketer Relationship Specialty Start Date End Date José Miguel Reyes MD [address] [place] [address] PCP - General Family Medicine 10/28/18 Antonio Villarreal MD [address] [place] [address] Referring Physician Plastic Surgery 10/29/18 Bin Porter MD PhD [address] [facility] [address] [place] [address] Medical Oncologist/Powder Nipper Medical Oncology 09/05/20 documented as of this encounter
--- OUTSIDE RECORDS SUMMARY | 2024-06-25 09:42 | XMS_ITS | Clinical Summary ---
Author Organization [facility] Address [address] [place] [address] Care Team Providers Care Pattern Finisher Name Role Phone Unavailable Primary Care Provider Unavailabl e Immunizations Immunization Administration Dates Next Due Covid-19, Mrna, Lnp-s, Pf, 30 Mcg/0.3 Ml Dose (P fizer) 04/05/2021 Social History Tobacco Use Types Packs/Day Years Used Date Smoking Tobacco: Never Assessed Sex and Gender Information Value Date Recorded Sex Assigned at Not on file Legal Sex Male 10:08 PM FOREST FIRE OFFICER Gender Identity Not on file Sexual Orientation Not on file Plan of Treatment Health Maintenance Due Date Last Done Comments Hepatitis C Virus (HCV) Screening 1940 TdaP Immunization 1942 Zoster Immunization (1 of 2) 1992 Respiratory Syncytial Virus (RSV) Immunization (Adult) (1 - 1-dose 75+ series) 2017 Pneumococcal Immunization (50+ years) (2 of 2 - PPSV23) 01/30/2018 01/30/2017 Influenza Immunization (#1) 12/01/202312/31, 01/27/2020, 01/08/2019, Additional history exists SARS-COV-2 Immunization ( season) 2023 04/05/2021, 06/21/2020, 05/31/2020 Hepatitis B Immunization Aged Out No longer eligible based on patient's age to complete this topic Meningococcal Immunization (ACWY) Aged Out No longer eligible based on patient's age to complete this topic Rotavirus Immunization Aged Out No lo nger eligible based on patient's age to complete this topic
--- OUTSIDE RECORDS SUMMARY | 2024-06-25 09:42 | XMS_ITS | Referral Summary ---
Author Organization [facility] Address [address] [place] [address] Care Team Providers Care New Vehicle Sales Consultant Name Role Phone José Miguel Reyes MD Primary Care Provider Antonio Villarreal MD Unavailable Bin Porter MD PhD Unavailable + Allergies Active Allergy Reactions Criticality Noted Date Comments Nivolumab Other (See comments) Low 03/23/2021 Overall body issues Other Other (See comments) Low 03/23/2021 Relatlimab- overall body issues Medications multivit with minerals/lutei n (MULTIVITAMIN 50 PLUS ORAL) Take 1 tablet by mouth loom repairer before breakfast Calcium 210 mg +Vitamin D [...] NIF/FVC Q12H - Follow up myasthenia panel ([place]) - Myopathy panel pending - Pyridostigmine 60mg [...] high magnesium concentrations), particularly IV magnesium - [place] - Iodinated contrast agents - B-blockers (both [...] lisinopril for PLEX sessions. - Restart at [place], given completed apheresis. 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 Porter. Was previously on Protocol #[id number] Nivolumab + Relatlimab and taken off due [...] with Dr. Porter. Was previously on Protocol #[id number] Nivolumab + Relatlimab and taken off due [...] CDT): Malignant melanoma of scalp, stage IIA ([id number]). BRAF V600E negative by IHC. Metastatic recurrence of liver. BRAF V600E negative by IHC. On 11/02/2020, received cycle 1 on CA224 protocol #[id number] and randomized to nivolumab 480 mg plus relatlimab 480 mg Q4W. -Immunotherapy now on hold given concern for toxicity -Medical oncology consulted. Will follow up with Dr. Nice outpatient. Assessment & Plan (12/01/2020 6:54 AM CDT): Malignant melanoma of scalp, stage IIA ([id number]). BRAF V600E negative by IHC. Metastatic recurrence of liver. BRAF V600E negative by IHC. On 11/02/2020, received cycle 1 on CA224 protocol #[id number] and randomized to nivolumab 480 mg plus [...] PURPLE 06/21/2020,05/31/2020 Pneumococcal Conjugate PCV 13 01/30/2017 Social History Tobacco Use Types Packs/Day Years [...] file Not on file Not on file Last Filed Vital Signs Vital Sign Reading [...] 10/09/2023 12:42 PM CDT Plan of Treatment Not on file Procedures Procedure Name Priority Date/Time Associated Diagnosis Comments EGFR STAT 10/09/2023 12:30 PM CDT Melanoma of scalp (HCC) HEMOGLOBIN A1C Routine 05/22/2023 8:43 AM PROFESSOR OF COMMUNICATION LIPID PANEL Routine 05/22/2023 8:43 AM PROFESSOR OF COMMUNICATION from Last 3 Months or Most Recently [...] was last reviewed 2021. Testing performed by: [facility], [address] [place] [id number] Blood 10/09/2023 12:3 0 PM CDT 10/09/2023 12:36 PM CDT us Bin Porter MD PhD LAB BLOOD ORDERABL ES Final Result [facility] Department [place] [address] * (ABNORMAL) Hemoglobin A1c (05/22/2023 8:43 AM PROFESSOR OF COMMUNICATION) Hgb A1C 6.4(H) 4.0 - 5.6 % [facility] Estimated Average Glucose 137 mg/dL [facility] Comment: The ADA recommends reporting an estimated Average Glucose (eAG) with all Hemoglobin A1c results using the equation derived from a study of 507 normal and diabetic adults. Minority populations were underrepresented and children were not included. (Diabetes Care 2020; 43(S1): S66-S76). The eAG is not equivalent to a fasting glucose. Blood 05/22/2023 8:43 AM PROFESSOR OF COMMUNICATION 05/22/2023 9:46 AM PROFESSOR OF COMMUNICATION us José Miguel Reyes MD LAB BLOOD ORDERABLES Final Re sult [facility] Department [place] [address] * (ABNORMAL) Lipid panel (05/22/2023 8:43 AM PROFESSOR OF COMMUNICATION) Cholesterol 239(H) 30 - 199 mg/dL [facility] Comment: Interpretive Data Ages < or = [...] on 2017. Triglycerides 101 <=149 mg/dL [facility] Comment: Interpretive Data Ages < or [...] on 2017. HDL 57 >=40 mg/dL [facility] Comment: Interpretive Data Ages < or [...] on 2017. LDL, calculated 162(H) <=129 mg/dL [facility] Comment: Interpretive Data Ages < or [...] revised on 2017. Non-HDL Cholesterol 182 mg/dL [facility] Comment: Interpretive Data Ages < or [...] last revised on 2017. Chol/HDL ratio 4 [facility] Blood 05/22/2023 8:43 AM PROFESSOR OF COMMUNICATION 05/22/2023 9:45 AM PROFESSOR OF COMMUNICATION José Miguel Reyes MD LAB BLOOD ORDERABLES Final Re sult [facility] Department [place] [address] from Last 3 Months or Most Recently Relevant to Health Maintenance Insurance [employer] CHOICE [place] [address] [facility] CHOICE MEDICARE PPO HUMAN CLAIMS OFFICE MEDICARE [employer] CHOICE MEDICARE PPO [employer] CHOICE MEDICARE PPO [employer] CHOICE MEDICARE PPO Advance Directives For more information, please contact: [phone] Documents on File Type Date Recorded Patient Talk Show Host Expl anation ADVANCE DIRECTIVE 09/21/2020 6:31 AM Power of Drilling Contractor-Medical * Full Code (Latest Code Status on File) Date Activated Date Inactivated Comments 05/17/2022 8:11 AM 05/18/2022 5:22 AM * Full Code Date Activated Date Inactivated Comments 01/24/2021 7:09 PM 02/01/2021 10:21 PM * Full Code Date Activated Date Inactivated Comments 11/30/2020 11:21 PM 12/12/2020 11:06 PM Care Teams New Vehicle Sales Consultant Relationship Specialty Start Date End Date José Miguel Reyes MD [address] [place] [address] PCP - General Family Medicine 10/28/18 Antonio Villarreal MD [address] [place] [address] Referring Physician Plastic Surgery 10/29/18 Bin Porter MD PhD [address] [facility] [address] [place] [address] Medical Oncologist/Electrolytic Etcher Medical Oncology 09/05/20
== END 2024-06-25 09:09 | disposition home or self-care (01) ==
PROVIDERS: PCP Family Medicine; Visit Provider Family Medicine
DX: C43.4 Malignant melanoma of scalp and neck (principal)
CPT/HCPCS: 78816; A9552